=== PATIENT | male | born 1955 | race Caucasian/White ===

== ENCOUNTER 2016-07-04 06:52 | Inpatient (IN) | payer OTHER ==
[2016-07-04] VITALS (9 sets, daily range): BP systolic 158–212; BP diastolic 71–99; PULSE 57–97; RESP 14–20; TEMP 96.4–98.1; O2SAT 92–99
[~2016-07-04] VITALS: Ht 185.4 cm; Wt 80.0 kg
[~2016-07-04 06:52] MED LIST: AMLO10TA2 PO; LOSA100T PO; MEDI220T PO; PROT40TA PO
[2016-07-04 07:38] LABS: BLOOD, URINE MOD (NEG); GLUCOSE,URINE NEG (NEG); KETONE, URINE NEG (NEG); MUCUS URINE FEW /lpf (OCC); NITRITE,URINE NEG (NEG); PH, URINE 5.5 (5.0-8.5); SQUAMOUS EPITHELIAL CELL URINE <1 /hpf (0-5); URINE COLOR YELLOW (YELLW/STRAW)
[2016-07-04 07:51] LABS: COMMENT (UR) CULT NOT INDICATED; CULTURE IF INDICATED CULT NOT INDICATED
[2016-07-04] MEDS ORDERED: SODIUM CHLOR 0.9% 1000 ML INJ 1,000 ML IV SCH (09:57)
[2016-07-04] MEDS ORDERED: ONDANSETRON HCL 4 MG/2 ML VIAL IVP ONE (10:00)
[2016-07-04] MEDS ORDERED: SODIUM CHLORIDE 0.9% FLUSH 5 ML FLUSH IVF PRN (10:00)
[2016-07-04] MEDS ORDERED: KETOROLAC TROMETHAMINE 30 MG/ML (IVP) VIAL IVP ONE (10:00)
[2016-07-04 10:25] LABS: AUTOMATED NEUTROPHIL # 5.6 TH/MM3 (1.8-7.7); BASOPHIL # 0.1 TH/MM3 (0-0.2); BASOPHIL % 0.9 % (0.0-2.0); EOSINOPHIL # 0.3 TH/MM3 (0-0.4); EOSINOPHIL % 3.1 % (0.0-4.0); HEMATOCRIT 40.4 % (39.0-51.0); HEMO FLAGS DIFF FINAL; LYMPH % 20.4 % (9.0-44.0); LYMPHOCYTE # 1.7 TH/MM3 (1.0-4.8); MEAN CELL VOLUME 100.8 FL (80.0-100.0); MEAN CORPUSCULAR HEMOGLOBIN 35.1 PG (27.0-34.0); MEAN CORPUSCULAR HGB CONC 34.9 % (32.0-36.0); MONO % 8.5 % (0.0-8.0); NEUT % 67.1 % (16.0-70.0); PLATELET COUNT 191 TH/MM3 (150-450); RED BLOOD COUNT 4.01 MIL/MM3 (4.50-5.90); WHITE BLOOD COUNT 8.4 TH/MM3 (4.0-11.0)
[2016-07-04 10:40] LABS: ALT (GPT) 59 U/L (12-78); ANION GAP 5 MEQ/L (5-15); AST (GOT) 66 U/L (15-37); BICARBONATE 27.9 MEQ/L (21.0-32.0); BLOOD UREA NITROGEN 16 MG/DL (7-18); CHLORIDE 108 MEQ/L (98-107); GLOMERULAR FILTRATION RATE 63 ML/MIN (>89); POTASSIUM 4.6 MEQ/L (3.5-5.1); SODIUM (NA) 141 MEQ/L (136-145)
[2016-07-04 10:43] LABS: ALKALINE PHOSPHATASE 82 U/L (45-117); TOTAL BILIRUBIN ADULT 0.4 MG/DL (0.2-1.0)
--- NOTE | 2016-07-04 11:19 | PD ---
HPI Chief Complaint: Flank/Kidney Pain Time Seen by Provider: 09:54 Travel History International Travel<30 days: No Contact w/Intl Traveler<30days: No Traveled to known affect area: No History of Present Illness HPI Patient is a 61-year-old male presents emergency Department with a history of right flank pain intermittent for the past 2 days. Patient states he went to work today and the pain became excruciating and told his boss was, in the emergency department. Patient states he has a history of kidney stones and feels like he might have a kidney stone now. Denies any fevers mild nausea without vomiting. No diarrhea no blood in the stool. Patient states she's not seen a urologist in some time, his last kidney stone he had to be admitted for to have ultrasonographic lithotripsy. Patient states currently his pain is 10 out of 10 but is been intermittent in her right flank. Also endorses dysuria. PFSH Past Medical History Hx Anticoagulant Therapy: Yes (ASPIRIN) Blood Disorders: Yes (bleeds easily) Heart Rhythm Problems: No Cancer: No Cardiac Catheterization: Yes Cardiovascular Problems: Yes (HTN) High Cholesterol: No Chest Pain: Yes Congestive Heart Failure: No Cerebrovascular Accident: Yes Diabetes: No Diminished Hearing: No Endocrine: No Gastrointestinal Disorders: Yes Genitourinary: Yes (kidney stones) Hepatitis: Yes (C) Hiatal Hernia: Yes Hypertension: Yes ( 2 cardiac caths) Immune Disorder: No Implanted Vascular Access Dvce: No Kidney Stones: Yes Musculoskeletal: Yes (ruptured right bicep) Neurologic: Yes (TIA x ) Psychiatric: Yes (ALCOHOLISM) Reproductive: No Respiratory: No Integumentary: Yes (PSORIASIS) Thyroid Disease: No Past Surgical History Abdominal Surgery: No AICD: No Ear Surgery: No Eye Surgery: No Genitourinary Surgery: No Gynecologic Surgery: No Joint Replacement: No Oral Surgery: No Pacemaker: No Tonsillectomy: Yes Other Surgery: Yes (tennis elbow, carpal tunnel, rotator cuff, hiatal hernia) Social History Alcohol Use: Yes (vodka daily) Tobacco Use: Yes (2ppd) Substance Use: No Allergies-Medications (Allergen,Severity, Reaction): Coded Allergies: Darvocet-N 100 (Verified Allergy, Severe, Hives, 07/04/16) Reported Meds & Prescriptions Reported Meds & Active Scripts Active Losartan (Losartan Potassium) 100 Mg Tab 100 Mg PO DAILY Review of Systems Except as stated in HPI: all other systems reviewed are Neg Physical Exam Narrative GENERAL: Well-developed well-nourished no apparent distress SKIN: Warm and dry. HEAD: Atraumatic. Normocephalic. EYES: Pupils equal and round. No scleral icterus. No injection or drainage. ENT: No nasal bleeding or discharge. Mucous membranes pink and moist. NECK: Trachea midline. No JVD. CARDIOVASCULAR: Regular rate and rhythm. No murmur appreciated. RESPIRATORY: No accessory muscle use. Clear to auscultation. Breath sounds equal bilaterally. GASTROINTESTINAL: Abdomen soft, non-tender, nondistended. Hepatic and splenic margins not palpable. Minimal CVA tenderness on the right. MUSCULOSKELETAL: No obvious deformities. No clubbing. No cyanosis. No edema. NEUROLOGICAL: Awake and alert. No obvious cranial nerve deficits. Motor grossly within normal limits. Normal speech. PSYCHIATRIC: Appropriate mood and affect; insight and judgment normal. Data Data Last Documented VS Vital Signs Date Time Temp Pulse Resp B/P Pulse Ox O2 Delivery O2 Flow Rate FiO2 07/04/16 11:37 16 07/04/16 10:36 97 07/04/16 10:16 57 212/99 Room Air 07/04/16 06:54 97.9 Orders Urinalysis - C+S If Indicated (07/04/16 07:08) Complete Blood Count With Diff (07/04/16 09:57) Comprehensive Metabolic Panel (07/04/16 09:57) Lipase (07/04/16 09:57) Ct Abd/Pel W/O Iv Contrast (07/04/16 09:57) Iv Access Insert/Monitor (07/04/16 09:57) Ecg Monitoring (07/04/16 09:57) Oximetry (07/04/16 09:57) Ondansetron Inj (Zofran Inj) (07/04/16 10:00) Sodium Chlor 0.9% 1000 Ml Inj (Ns 1000 M (07/04/16 09:57) Sodium Chloride 0.9% Flush (Ns Flush) (07/04/16 10:00) Ketorolac Inj (Toradol Inj) (07/04/16 10:00) Morphine Inj (Morphine Inj) (07/04/16 12:30) Electrocardiogram (07/04/16 ) Troponin I (07/04/16 13:32) Admit Order (Ed Use Only) (07/04/16 ) Consult Urology (07/04/16 ) Labs Laboratory Tests Test 07/04/16 07/04/16 07:13 10:10 Urine Color YELLOW Urine Turbidity CLEAR Urine pH 5.5 Urine Specific [place] 1.019 Urine Protein TRACE mg/dL Urine Glucose (UA) NEG mg/dL Urine Ketones NEG mg/dL Urine Occult Blood MOD Urine Nitrite NEG Urine Bilirubin NEG Urine Urobilinogen LESS THAN 2.0 MG/DL Urine Leukocyte Esterase MOD Urine RBC /hpf Urine WBC 6 /hpf Urine Squamous Epithelial <1 /hpf Cells Urine Mucus FEW /lpf Microscopic Urinalysis Comment CULT NOT INDICATED White Blood Count 8.4 TH/MM3 Red Blood Count 4.01 MIL/MM3 Hemoglobin 14.1 GM/DL Hematocrit 40.4 % Mean Corpuscular Volume 100.8 FL Mean Corpuscular Hemoglobin 35.1 PG Mean Corpuscular Hemoglobin 34.9 % Concent Red Cell Distribution Width 13.0 % Platelet Count 191 TH/MM3 Mean Platelet Volume 8.9 FL Neutrophils (%) (Auto) 67.1 % Lymphocytes (%) (Auto) 20.4 % Monocytes (%) (Auto) 8.5 % Eosinophils (%) (Auto) 3.1 % Basophils (%) (Auto) 0.9 % Neutrophils # (Auto) 5.6 TH/MM3 Lymphocytes # (Auto) 1.7 TH/MM3 Monocytes # (Auto) 0.7 TH/MM3 Eosinophils # (Auto) 0.3 TH/MM3 Basophils # (Auto) 0.1 TH/MM3 CBC Comment DIFF FINAL Differential Comment Sodium Level 141 MEQ/L Potassium Level 4.6 MEQ/L Chloride Level 108 MEQ/L Carbon Dioxide Level 27.9 MEQ/L Anion Gap 5 MEQ/L Blood Urea Nitrogen 16 MG/DL Creatinine 1.18 MG/DL Estimat Glomerular Filtration 63 ML/MIN Rate Random Glucose 77 MG/DL Calcium Level 8.6 MG/DL Total Bilirubin 0.4 MG/DL Aspartate Amino Transf 66 U/L (AST/SGOT) Alanine Aminotransferase 59 U/L (ALT/SGPT) Alkaline Phosphatase 82 U/L Total Protein 8.2 GM/DL Albumin 3.8 GM/DL Lipase 133 U/L [facility] Medical Decision Making Medical Screen Exam Complete: Yes Emergency Medical Condition: Yes Differential Diagnosis Kidney stone, hydronephrosis, acute kidney injury, urinary tract infection. Cholecystitis unlikely, appendicitis unlikely. Narrative Course Last 24 hours Impressions Abdomen/Pelvis CT 07/04/16 0957 Signed Impressions: Service Date/Time: Monday, July 04, 2016 11:15 - CONCLUSION: 1. Obstructing calcified elongated 1 cm stone in the distal third of the right ureter with moderate perinephric stranding. 2. Renal stones remain in both kidneys. Gregory Chavez MD FACR Abdomen X-Ray 07/04/16 0000 Signed Impressions: Service Date/Time: Monday, July 04, 2016 14:19 - CONCLUSION: 1. Known bilateral renal calculi and right distal ureteral calculus are difficult to identify on the limited plain film. 2. No evidence of bowel obstruction, ileus or perforation. Evin Matt MD Patient Cr wnl, no uti. Patient appears comfortable at first then colicky pain starts again requring multiple doses of IV narcotics (morphine and dilaudid IV) . Patient discussed with Dr. Holloway who will see in consultation. Admitted to Dr. Curiel. Diagnosis Primary Impression: Kidney stone Additional Impression: Hydronephrosis Admitting Information Admitting Physician Requests: Admit Condition: Stable Evin Pearson MD Jul 04, 2016 11:19
--- NOTE | 2016-07-04 11:47 | RADRPT ---
EXAM DATE/TIME: 07/04/2016 11:15 [facility] COMPARISON: CT ABDOMEN & PELVIS W/O CONTRAST, May 05, 2016, 19:32. INDICATIONS : Right flank pain and hematuria x 3 days. ORAL CONTRAST: No oral contrast ingested. RADIATION DOSE: 10.10 CTDIvol (mGy) MEDICAL HISTORY: Cardiovascular disease. Cerebrovascular disease. Renal calculi. Hypertension. Hepatitis C. SURGICAL HISTORY: None. ENCOUNTER: Initial ACUITY: 3 days PAIN SCALE: 10/10 LOCATION: Right flank TECHNIQUE: Volumetric scanning of the abdomen and pelvis was performed. Using automated exposure control and ad justment of the mA and/or kV according to patient size, radiation dose was kept as low as reasonably achievable to obtain optimal diagnostic quality images. FINDINGS: Lung bases are clear. There is a single low density lesion present in the dome of the liver measurin g 2 cm, stable in the interval. Spleen is unremarkable. Pancreas and adrenals appear normal. There is moderate perinephric stranding about the right kidney. There is an 8 mm non-obstructing sto ne in the mid portion of the right kidney. There is a dilated right ureter extending down to the pelvis where there is an elongated 8 mm stone i n the distal third of the right ureter above the ureteropelvic junction. Scattered non-obstructing c alculi are seen in the left kidney in the order of 5-7 mm. There is no ascites or adenopathy appreciated. Extensive prostatic calcifications are noted. CONCLUSION: 1. Obstructing calcified elongated 1 cm stone in the distal third of the right ureter with moderate perinephric stranding. 2. Renal stones remain in both kidneys. Gregory Chavez MD FACR on July 04, 2016 at 11:34 Board Certified Radiologist. This report was verified electronically.
[2016-07-04] MEDS ORDERED: MORPHINE SULFATE 8 MG/ML INJ IV PUSH ONE (12:30)
[2016-07-04] MEDS ORDERED: NALOXONE HCL 0.4 MG/ML AMP IV PRN ×2 (14:00)
[2016-07-04] MEDS ORDERED: MORPHINE SULFATE 4 MG/ML INJ IV PRN (14:00)
[2016-07-04] MEDS ORDERED: ACETAMINOPHEN/HYDROcodone 325 MG/5 MG TAB PO PRN (14:00)
[2016-07-04] MEDS ORDERED: hydrALAZINE HCL 20 MG/ML VIAL IV PUSH ONE (14:00)
[2016-07-04] MEDS ORDERED: SENNOSIDES 8.6 MG TAB PO PRN (14:15)
[2016-07-04] MEDS ORDERED: SODIUM CHLORIDE 0.9% FLUSH 5 ML FLUSH FLUSH PRN (14:15)
[2016-07-04] MEDS ORDERED: TEMAZEPAM 15 MG CAP PO PRN (14:15)
[2016-07-04] MEDS ORDERED: PROCHLORPERAZINE 25 MG SUPP PR PRN (14:15)
[2016-07-04] MEDS ORDERED: BISACODYL 10 MG SUPP PR PRN (14:15)
[2016-07-04] MEDS ORDERED: ONDANSETRON HCL 4 MG/2 ML VIAL IVP PRN (14:15)
[2016-07-04] MEDS ORDERED: MAGNESIUM HYDROXIDE SUSP 30 ML CUP PO PRN (14:15)
[2016-07-04] MEDS ORDERED: HYDROmorphone HCL PF 1 MG/ML VIAL IV PUSH ONE ×2 (14:45→21:30)
[2016-07-04] MEDS: SODIUM CHLOR 0.9% 1000 ML INJ 1,000 ML IV SCH ×2 (15:28→21:35)
--- NOTE | 2016-07-04 16:06 | HHI.HP ---
HPI Service [facility] Primary Care Physician Unknown Admission Diagnosis Obstructing kidney stone. Diagnoses: Chief Complaint: back pain , bloody urine Travel History International Travel<30 Days: No Contact w/Intl Traveler <30 Da: No Traveled to Known Affected Are: No History of Present Illness 60-year-old male with PMH of HTN, ? hepatitis C, ventral hernia s/p repair with mesh 30years ago, TIA 2, psoriasis, renal stones, tobacco user, presents with right flank pain/ abdominal pain radiating to the groin x 2 days and bloody urine for the past week. Patient states he went to work today and the pain became excruciating and told his boss he will go to the emergency department. Patient states he has a history of kidney stones and feels like he might have a kidney stone now. Denies any fevers. he has mild nausea without vomiting. No diarrhea, no blood in the stool. Patient states she's not seen a urologist in some time, his last kidney stone he had to be admitted for to have ultrasonographic lithotripsy. Patient states currently his pain is 10 out of 10 but is been intermittent in her right flank. Also endorses dysuria for the past week. He also has burning with urination. No other associated symptoms. Review of Systems Other 12 system ROS reviewed and negative except as described in HPI Past Family Social History Past Medical History HTN TIA 2, in 2011 and 2014 Hepatitis C Ventral hernia Renal stones Internal hemorrhoids Psoriasis Recent bicep tendon rupture Past Surgical History Ventral hernia repair with mesh at age 20 Tonsillectomy Bilateral elbow surgery for "tennis elbow" Left carpal tunnel surgery Lithotripsy Heart catheterizations, in 2011 and 12/04/2014 showed 20-25% LAD stenosis, did not require angioplasty or stenting, otherwise unremarkable Reported Medications Losartan Potassium 100 Mg Tab 100 Mg PO DAILY Clobetasol Propionate 0.05 % Oin 1 Applic TOP BID Tylenol pm at night for sleep Allergies: Coded Allergies: Darvocet-N 100 (Verified Allergy, Severe, Hives, 07/04/16) Family History Motherheart disease, age 84 Fatherheart disease in his 70s Brothersuicide Younger sister with stage IV cervical cancer Other sister with anxiety Maternal aunt with lung cancer Social History Smokes tobacco 1.5 PPD since age 18, recently signed up for tobacco-free [place] and is trying to quit Drink alcohol, 1/2 pint of vodka on the weekends Denies any other illicit drug use Works at [employer], mops and cleans, stays active, ruptured his bicep tendon and is on Workman's Comp Lives at home Physical Exam Vital Signs Vital Signs Date Time Temp Pulse Resp B/P Pulse Ox O2 Delivery O2 Flow Rate FiO2 07/04/16 16:00 17 07/04/16 15:58 98.1 78 17 180/98 99 Room Air 07/04/16 15:31 17 07/04/16 14:24 95 21 07/04/16 11:37 16 07/04/16 10:36 20 97 07/04/16 10:16 57 14 212/99 97 Room Air 07/04/16 06:54 97.9 71 18 205/94 99 Physical Exam GENERAL: This is a well-nourished, well-developed patient, in no apparent distress. SKIN: No rashes, ecchymoses or lesions. Cool and dry. HEAD: Atraumatic. Normocephalic. No temporal or scalp tenderness. EYES: Pupils equal round and reactive. Extraocular motions intact. No scleral icterus. No injection or drainage. ENT: Nose without bleeding, purulent drainage or septal hematoma. Throat without erythema, tonsillar hypertrophy or exudate. Uvula midline. Airway patent. NECK: Trachea midline. No JVD or lymphadenopathy. Supple, nontender, no meningeal signs. CARDIOVASCULAR: Regular rate and rhythm without murmurs, gallops, or rubs. RESPIRATORY: Clear to auscultation. Breath sounds equal bilaterally. No wheezes , rales, or rhonchi. GASTROINTESTINAL: Abdomen soft, non-tender, nondistended. No hepato-splenomegaly , or palpable masses. No guarding. MUSCULOSKELETAL: Extremities without clubbing, cyanosis, or edema. No joint tenderness, effusion, or edema noted. No calf tenderness. Negative Homans sign bilaterally. NEUROLOGICAL: Awake and alert. Cranial nerves II through XII intact. Motor and sensory grossly within normal limits. Five out of 5 muscle strength in all muscle groups. Normal speech. Laboratory Laboratory Tests Test 07/04/16 07/04/16 07/04/16 07:13 10:10 14:37 Urine Color YELLOW Urine Turbidity CLEAR Urine pH 5.5 Urine Specific [place] 1.019 Urine Protein TRACE Urine Glucose (UA) NEG Urine Ketones NEG Urine Occult Blood MOD Urine Nitrite NEG Urine Bilirubin NEG Urine Urobilinogen LESS THAN 2.0 Urine Leukocyte Esterase MOD Urine RBC Urine WBC 6 Urine Squamous Epithelial <1 Cells Urine Mucus FEW Microscopic Urinalysis Comment CULT NOT INDICATED White Blood Count 8.4 Red Blood Count 4.01 Hemoglobin 14.1 Hematocrit 40.4 Mean Corpuscular Volume 100.8 Mean Corpuscular Hemoglobin 35.1 Mean Corpuscular Hemoglobin 34.9 Concent Red Cell Distribution Width 13.0 Platelet Count 191 Mean Platelet Volume 8.9 Neutrophils (%) (Auto) 67.1 Lymphocytes (%) (Auto) 20.4 Monocytes (%) (Auto) 8.5 Eosinophils (%) (Auto) 3.1 Basophils (%) (Auto) 0.9 Neutrophils # (Auto) 5.6 Lymphocytes # (Auto) 1.7 Monocytes # (Auto) 0.7 Eosinophils # (Auto) 0.3 Basophils # (Auto) 0.1 CBC Comment DIFF FINAL Differential Comment Sodium Level 141 Potassium Level 4.6 Chloride Level 108 Carbon Dioxide Level 27.9 Anion Gap 5 Blood Urea Nitrogen 16 Creatinine 1.18 Estimat Glomerular Filtration 63 Rate Random Glucose 77 Calcium Level 8.6 Total Bilirubin 0.4 Aspartate Amino Transf 66 (AST/SGOT) Alanine Aminotransferase 59 (ALT/SGPT) Alkaline Phosphatase 82 Total Protein 8.2 Albumin 3.8 Lipase 133 Troponin I LESS THAN 0.02 Result Diagram: 07/04/16 1010 07/04/16 1010 Imaging Last Impressions Abdomen/Pelvis CT 07/04/16 0957 Signed Impressions: Service Date/Time: Monday, July 04, 2016 11:15 - CONCLUSION: 1. Obstructing calcified elongated 1 cm stone in the distal third of the right ureter with moderate perinephric stranding. 2. Renal stones remain in both kidneys. Gregory Chavez MD FACR Assessment and Plan Assessment and Plan 61-year-old male with PMH of HTN, hepatitis C, ventral hernia s/p repair with mesh 30years ago, TIA 2, psoriasis, renal stones, tobacco user with right flank pain and hematuria Right flank pain and hematuria 2/2 nephrolithiasis Mild RANDY decreased GFR and elevated Cr and BUN on admission likely 2/2 obstructing calcified 1 cm right ureter stone/ nephrolithiasis CT reviewed findings discussed with ED physician 1. Obstructing calcified elongated 1 cm stone in the distal third of the right ureter with moderate perinephric stranding. 2. Renal stones remain in both kidneys IVF, pain meds per pain scale PO and IV NPO after midnight plan for sx by Dr Holloway urology appreciate recommendations HTN: Chronic, stable. Continue patient's Cozaar. Hepatitis C: Chronic, stable. Continue outpatient follow up. Tobacco Abuse: Counseled on cessation. Nicotine patch if need, refusing at this time. Alcohol Abuse: Counseled on cessation. Not a daily drinker but does binge on the weekends with 1/2 pint of Vodka. Denies any problem with withdrawal. Monitor. Chronic Neck Pain/Shoulder Pain/Bicep Tear: pain control as needed. All other medical conditions stable, continue home medications. DVT Prophylaxis: teds/SCDs GI Prophylaxis: Protonix Code Status full code Discussed Condition With patient, nurse, ED physician, Dr Holloway urology Physician Certification 2 Midnight Certification Type: Admission for Inpatient Services Order for Inpatient Services The services are ordered in accordance with Medicare regulations or non- Medicare payer requirements, as applicable. In the case of services not specified as inpatient-only, they are appropriately provided as inpatient services in accordance with the 2-midnight benchmark. Estimated LOS (days): 3 days is the estimated time the patient will need to remain in the hospital, assuming treatment plan goals are met and no additional complications. Post-Hospital Plan: Not yet determined Abigail Curiel MD Jul 04, 2016 16:06
[2016-07-04] MEDS: TAMSULOSIN HCL 0.4 MG CAP PO SCH (16:27)
[2016-07-04] MEDS ORDERED: PANTOPRAZOLE SOD 20 MG DELAYED RELEASE TAB PO ONE (16:30)
--- NOTE | 2016-07-04 17:01 | RADRPT ---
EXAM DATE/TIME: 07/04/2016 14:19 [facility] COMPARISON: CT ABDOMEN & PELVIS W/O CONTRAST, July 04, 2016, 11:15. ABDOMEN KUB ONLY, February 08, 2016, 6: 20. INDICATIONS : Renal stones, abdominal pain. MEDICAL HISTORY : Hepatitis C. Hypertension. Hernia, hiatal. Renal stones. CVA. SURGICAL HISTORY : Cardiac cath. ENCOUNTER: Initial ACUITY: 4 - 6 days PAIN SCORE: 5/10 LOCATION: Right abdomen. FINDINGS: There is no evidence of bowel obstruction or ileus. The known bilateral renal calculi and right dist al ureteral calculus are very difficult to identify on the limited plain film. No free intraperitone al air is noted. CONCLUSION: 1. Known bilateral renal calculi and right distal ureteral calculus are difficult to identify on the limited plain film. 2. No evidence of bowel obstruction, ileus or perforation. Evin Matt MD on July 04, 2016 at 16:53 Board Certified Radiologist. This report was verified electronically.
[2016-07-04] MEDS: ACETAMINOPHEN/HYDROcodone 325 MG/10 MG TAB PO PRN ×2 (17:36→23:10)
[2016-07-04] MEDS ORDERED: cloNIDine HCL 0.1 MG TAB PO PRN (17:45)
--- NOTE | 2016-07-04 17:51 | EKG ---
Date Performed: 07/04/2016 Time Performed: 14:26:06 PTAGE: 61 years EKG: Sinus rhythm WITH Premature atrial contractions NONSPECIFIC T-WAVE ABNORMALITY BORDERLINE ECG NO SIGNIFICANT GARCIA GE FROM PRIOR ELECTROCARDIOGRAM. PREVIOUS TRACING : 02/08/2016 06.33 DOCTOR: Galileo Mckeon Interpretating Date/Time 07/04/2016 17:50:42
[2016-07-04] MEDS: TRIAMCINOLONE ACETONIDE 0.1% CREAM 15 GM TOPICAL SCH ×2 (18:00→23:10)
[2016-07-04] MEDS: MORPHINE SULFATE 4 MG/ML INJ IV PRN (18:33)
[2016-07-04] MEDS: SODIUM CHLORIDE 0.9% FLUSH 5 ML FLUSH FLUSH SCH (21:00)
[2016-07-05] VITALS (8 sets, daily range): BP systolic 129–162; BP diastolic 74–91; PULSE 66–88; RESP 16–20; TEMP 96.7–97.6; O2SAT 95–98
[2016-07-05] MEDS: MORPHINE SULFATE 4 MG/ML INJ IV PRN ×3 (01:30→07:52)
[2016-07-05] MEDS: TRIAMCINOLONE ACETONIDE 0.1% CREAM 15 GM TOPICAL SCH ×4 (04:49→23:38)
[2016-07-05] MEDS: SODIUM CHLOR 0.9% 1000 ML INJ 1,000 ML IV SCH ×3 (04:49→21:41)
[2016-07-05 07:12] LABS: AUTOMATED NEUTROPHIL # 3.7 TH/MM3 (1.8-7.7); BASOPHIL % 0.4 % (0.0-2.0); EOSINOPHIL # 0.4 TH/MM3 (0-0.4); EOSINOPHIL % 5.7 % (0.0-4.0); HEMATOCRIT 35.3 % (39.0-51.0); HEMO FLAGS DIFF FINAL; LYMPH % 23.7 % (9.0-44.0); LYMPHOCYTE # 1.5 TH/MM3 (1.0-4.8); MEAN CELL VOLUME 102.5 FL (80.0-100.0); MEAN CORPUSCULAR HEMOGLOBIN 34.6 PG (27.0-34.0); MEAN CORPUSCULAR HGB CONC 33.7 % (32.0-36.0); NEUT % 59.2 % (16.0-70.0); PLATELET COUNT 157 TH/MM3 (150-450); RED BLOOD COUNT 3.44 MIL/MM3 (4.50-5.90); RED CELL DISTRIBUTION WIDTH 13.1 % (11.6-17.2); WHITE BLOOD COUNT 6.3 TH/MM3 (4.0-11.0)
[2016-07-05 07:42] LABS: BICARBONATE 25.8 MEQ/L (21.0-32.0); POTASSIUM 3.8 MEQ/L (3.5-5.1)
[2016-07-05] MEDS: PANTOPRAZOLE SOD 20 MG DELAYED RELEASE TAB PO SCH (07:51)
[2016-07-05] MEDS: SODIUM CHLORIDE 0.9% FLUSH 5 ML FLUSH FLUSH SCH ×2 (07:51→21:00)
[2016-07-05] MEDS: TAMSULOSIN HCL 0.4 MG CAP PO SCH (07:51)
--- NOTE | 2016-07-05 08:54 | HHI.PR ---
Subjective Remarks Patient seen in follow-up for obstructing kidney stone, acute renal insufficiency. He reports persistent, uncontrolled right flank and lower back pain. Urinating okay. No nausea or vomiting. Objective Vitals Vital Signs Date Time Temp Pulse Resp B/P Pulse Ox O2 Delivery O2 Flow Rate FiO2 07/05/16 08:00 96.7 72 18 162/77 98 07/05/16 04:00 97.2 68 16 129/74 96 07/05/16 00:00 97.4 79 16 146/74 97 07/04/16 20:00 96.9 75 18 166/74 97 07/04/16 18:11 96.4 97 18 163/71 92 07/04/16 17:42 78 17 158/73 99 07/04/16 16:33 78 17 170/82 98 Room Air 07/04/16 16:00 17 07/04/16 15:58 98.1 78 17 180/98 99 Room Air 07/04/16 15:31 17 07/04/16 14:24 95 21 07/04/16 11:37 16 07/04/16 10:36 20 97 07/04/16 10:16 57 14 212/99 97 Room Air I/O 07/04/16 07/04/16 07/04/16 07/05/16 07/05/16 07/05/16 07:00 15:00 23:00 07:00 15:00 23:00 Intake Total 360 ml 0 ml Balance 360 ml 0 ml Intake Oral 360 ml 0 ml # Voids 1 2 # Bowel Movements 0 0 Result Diagram: 07/05/16 0642 07/05/16 0642 Imaging Last Impressions Abdomen/Pelvis CT 07/04/16 0957 Signed Impressions: Service Date/Time: Monday, July 04, 2016 11:15 - CONCLUSION: 1. Obstructing calcified elongated 1 cm stone in the distal third of the right ureter with moderate perinephric stranding. 2. Renal stones remain in both kidneys. Gregory Chavez MD FACR Abdomen X-Ray 07/04/16 0000 Signed Impressions: Service Date/Time: Monday, July 04, 2016 14:19 - CONCLUSION: 1. Known bilateral renal calculi and right distal ureteral calculus are difficult to identify on the limited plain film. 2. No evidence of bowel obstruction, ileus or perforation. Evin Matt MD Objective Remarks GENERAL: This is a well-nourished, well-developed patient, in no apparent distress. SKIN: Multiple psoriatic plaques involving the upper and lower extremities. CARDIOVASCULAR: Normal rate and regular rhythm without murmurs, gallops, or rubs. RESPIRATORY: Good respiratory efforts. Breath sounds equal and clear to auscultation bilaterally. GASTROINTESTINAL: Abdomen soft, non-tender, non-distended. Normal active bowel sounds : Reports CVA tenderness on the right. MUSCULOSKELETAL: Extremities without cyanosis, or edema. NEURO: Alert & Oriented x4 to person, place, time, situation. Moves all ext x4 PSYCH: Appropriate mood and affect. A/P Assessment and Plan 61-year-old male with: Right sided nephrolithiasis and hematuria: - Continue supportive care with pain control and IV fluid. - Urology consulted for intervention. Dr. Holloway. Keep NPO - Pain is uncontrolled. Change [place] to Percocet, Dilaudid IV for breakthrough. Hematuria resolved. Acute renal insufficiency: Likely secondary to above and dehydration. - Continue IV fluid. Recheck BMP in a.m. Anemia secondary to blood loss from above: Hematuria resolved. Continue to monitor H&H. HTN: Chronic, stable. Continue patient's Cozaar. Hepatitis C: Chronic, stable. Advised outpatient follow up. Tobacco Abuse: Patient previously counseled on cessation. DVT Prophylaxis: teds/SCDs GI Prophylaxis: Protonix Nj Saenz MD Jul 05, 2016 08:54
[2016-07-05] MEDS ORDERED: INFLUENZA VIRUS VACCINE (QUADRIVALENT) 0.5 ML SYR IM ONE (09:00)
[2016-07-05] MEDS: oxyCODONE/ACETAMINOPHEN 10 MG/325 MG TAB PO PRN ×3 (10:05→23:37)
[2016-07-05] MEDS: HYDROmorphone HCL PF 1 MG/ML VIAL IV PUSH PRN ×2 (11:38→15:20)
[2016-07-05] MEDS ORDERED: ONDANSETRON HCL 4 MG/2 ML VIAL IV PUSH ONE (12:00)
[2016-07-05] MEDS ORDERED: LACTATED RINGER'S 1000 ML INJ 1,000 ML IV ONE (12:00)
[2016-07-05] MEDS ORDERED: PROPOFOL 200 MG/20 ML AMP IV ONE (12:00)
[2016-07-05] MEDS ORDERED: NEOSTIGMINE 3 MG/3 ML SYR IV ONE (12:00)
--- NOTE | 2016-07-05 16:55 | MB ---
cc: JOE AGUAYO MD DATE OF CONSULTATION 07/05/16 REASON FOR CONSULTATION 1. Right flank pain 2. Distal right 8 mm ureteral stone with mild hydronephrosis. 3. Bilateral nonobstructing kidney stones HISTORY OF PRESENT ILLNESS The patient is a 60-year-old male with a history of kidney stones who presented with a four day history of right flank pain radiating into his groin for last four days but worsening in intensity as well as gross hematuria for the past week. The patient went to work yesterday and the pain became excruciating described as sharp and stabbing 03/05 and he told his boss he had to go to the emergency department. In the emergency room, he had a CT of the abdomen and pelvis without contrast done which showed bilateral nonobstructing stones as well as a 1 cm x 8 mm stone in his right distal ureter with mild hydroureter nephrosis. The pain reminded him of his kidney stone pain in the past. The patient was admitted for further evaluation. He denies any fevers, although has had mild nausea without vomiting. No diarrhea or chills or dysuria. He has been seen by Dr. Zaidi in the past who did lithotripsy on his stones in his left kidney several months ago. He denies any family history of prostate cancer. He has received both morphine and Toradol for pain since he has been admitted, but neither has really helped with his pain. PAST MEDICAL HISTORY 1. Hypertension, 2. TIA x2 3. Hepatitis C 4. Ventral hernia 5. Renal stones, 6. Psoriasis PAST SURGICAL HISTORY 1. Lithotripsy 2. Heart catheterization 2011 3. Tonsillectomy 4. Ventral hernia repair with mesh 5. Left carpal tunnel surgery MEDICATIONS Home medications include 1. Losartan 100 mg p.o. daily. 2. Tylenol PM at night p.r.n. for insomnia. ALLERGIES DARVOCET FAMILY HISTORY Negative for urolithiasis, negative for genitourinary malignancies. SOCIAL HISTORY Smoked 1 1/2 packs per day since 16. The patient drinks half pint of vodka on the weekends. Denies any illicit drug use. Currently at [employer]. REVIEW OF SYSTEMS A 12-point review of systems was performed and otherwise negative except for History of Present Illness. PHYSICAL EXAMINATION VITAL SIGNS: Temperature is 98.1, pulse 78, respiratory rate 17, BP 180/98, satting 99% on room air. GENERAL: He is alert and oriented x3. No apparent distress. Pleasant and cooperative gentleman who appears to be mildly uncomfortable. SKIN: No rashes, ecchymosis or lesions. Cook and dry. HEAD: Head is normocephalic, atraumatic. NECK: Trachea is midline. Neck is supple. EYES: There is no scleral icterus. Pupils equal, round, reactive to light. NOSE: Without bleeding, purulent drainage. Uvula is midline. CARDIOVASCULAR: Regular rate and rhythm without murmurs, gallops or rubs. RESPIRATORY: Clear to auscultation bilaterally. No wheezes, rales or rhonchi GASTROINTESTINAL: Abdomen soft, nontender, nondistended. Positive bowel sounds. GENITOURINARY:: There is no CVA test bilaterally. His penis is circumcized. Testes descended bilaterally. Normal size and consistency without mass. MUSCULOSKELETAL: Extremities without clubbing, cyanosis or edema, nontender, full range of motion in all extremities. PSYCHIATRIC: Normal affect. LABORATORY DATA White count 6.3, hemoglobin 11.9, hematocrit 35.3, platelet count 157. Sodium 138, potassium ___, chloride 106, bicarb 25.8, BUN 16, creatinine 1.32 up from 1.1. His urine was just some moderate blood and moderate leukocyte esterase. IMAGING STUDIES CT abdomen and pelvis without contrast images, reviewed radiologist report. Bilateral nonobstructing stones as well as an 8 millimeter distal right ureteral stone with mild hydronephrosis. ASSESSMENT The patient is a 61-year-old male with history of kidney stones admitted with right flank pain. He was found to have obstructing 8-mm right distal ureteral calculus as well as bilateral nonobstructing stones. PLAN We will keep the patient n.p.o. We will schedule him for cystoscopy right retrograde pyelogram, right ureteral stent insertion later today. I discussed the risks, benefits, alternatives with the patient including inability to pass a stent. All questions were answered. He elected to proceed. Informed consent was obtained. INDICATION Joe Aguayo MD EMTatiana/ /2:11 PM /4:34 PM M[place]
[2016-07-05] MEDS ORDERED: ceFAZolin 2 GM PREMIX 50 ML ONE (17:51)
[2016-07-05] MEDS ORDERED: FAMOTIDINE 20 MG/2 ML VIAL ONE (18:09)
[2016-07-05] MEDS ORDERED: ceFAZolin INJ 1,000 MG VIAL IV ONE (18:55)
--- NOTE | 2016-07-05 19:16 | PD.OP ---
Operative Report Date of Surgery: Jul 05, 2016 Preoperative Diagnosis: (1) Kidney stone (2) Hydronephrosis Postoperative Diagnosis: Procedure: cystoscopy, right ureteral stent insertion Surgeon: Joe Holloway Tele Marketing Executive(s): n/a Operation and Findings: see dictated note. Ok to d/c home. F/U with Dr. Zaidi as outpatient. Joe Holloway MD Jul 05, 2016 19:15
[2016-07-05] MEDS ORDERED: MIDAZOLAM HCL 2 MG/2 ML VIAL ONE (19:30)
[2016-07-05] MEDS ORDERED: *morphine SULFATE 8 MG/ML PERIprocedure ONLY ONE ×2 (19:38→19:53)
[2016-07-05] MEDS ORDERED: DO NOT ADM ANY ANTICOAGULANT DRUGS XX PRN (20:00)
[2016-07-06] VITALS: BP 156/91; PULSE 79; RESP 17; TEMP 96.7; O2SAT 95
[2016-07-06] MEDS: HYDROmorphone HCL PF 1 MG/ML VIAL IV PUSH PRN ×2 (00:35→05:36)
[2016-07-06 04:00] VITALS: BP 132/81; PULSE 64; RESP 16; TEMP 96.9; O2SAT 94
[2016-07-06] MEDS: oxyCODONE/ACETAMINOPHEN 10 MG/325 MG TAB PO PRN ×2 (04:14→08:14)
[2016-07-06] MEDS: SODIUM CHLOR 0.9% 1000 ML INJ 1,000 ML IV SCH (04:15)
[2016-07-06] MEDS: TRIAMCINOLONE ACETONIDE 0.1% CREAM 15 GM TOPICAL SCH (05:37)
[2016-07-06 06:58] LABS: HEMATOCRIT 36.7 % (39.0-51.0); MEAN CELL VOLUME 102.6 FL (80.0-100.0); MEAN CORPUSCULAR HEMOGLOBIN 35.4 PG (27.0-34.0); MEAN CORPUSCULAR HGB CONC 34.5 % (32.0-36.0); PLATELET COUNT 177 TH/MM3 (150-450); RED BLOOD COUNT 3.58 MIL/MM3 (4.50-5.90); RED CELL DISTRIBUTION WIDTH 13.1 % (11.6-17.2); REVIEW FLAG FINAL; WHITE BLOOD COUNT 6.8 TH/MM3 (4.0-11.0)
[2016-07-06 07:18] LABS: BICARBONATE 21.7 MEQ/L (21.0-32.0); POTASSIUM 4.5 MEQ/L (3.5-5.1)
[2016-07-06 07:59] VITALS: BP 180/97; PULSE 64; RESP 20; TEMP 96.6; O2SAT 95
[2016-07-06] MEDS: PANTOPRAZOLE SOD 20 MG DELAYED RELEASE TAB PO SCH (08:14)
[2016-07-06] MEDS: TAMSULOSIN HCL 0.4 MG CAP PO SCH (08:14)
[2016-07-06] MEDS: SODIUM CHLORIDE 0.9% FLUSH 5 ML FLUSH FLUSH SCH (08:32)
[2016-07-06] MEDS ORDERED: OXYC1TAB36 PO (09:13)
[2016-07-06] MEDS ORDERED: CLOB0.0571 TOPICAL (09:13)
[2016-07-06] MEDS ORDERED: TAMS5CAP PO (09:13)
--- NOTE | 2016-07-06 09:21 | HHI.DS ---
Discharge Summary Admission Date Jul 04, 2016 at 13:55 Discharge Date: Jul 06, 2016 Admitting Diagnosis Obstructing kidney stone. (1) Renal stones ICD Code: N20.0 (2) Essential hypertension ICD Code: I10 (3) Hematuria ICD Code: R31.9 (4) Anemia ICD Code: D64.9 Procedures Ureteral stent placement Brief History - From Admission 60-year-old male with PMH of HTN, ? hepatitis C, ventral hernia s/p repair with mesh 30years ago, TIA 2, psoriasis, renal stones, tobacco user, presents with right flank pain/ abdominal pain radiating to the groin x 2 days and bloody urine for the past week. Patient states he went to work today and the pain became excruciating and told his boss he will go to the emergency department. Patient states he has a history of kidney stones and feels like he might have a kidney stone now. Denies any fevers. he has mild nausea without vomiting. No diarrhea, no blood in the stool. Patient states she's not seen a urologist in some time, his last kidney stone he had to be admitted for to have ultrasonographic lithotripsy. Patient states currently his pain is 10 out of 10 but is been intermittent in her right flank. Also endorses dysuria for the past week. He also has burning with urination. No other associated symptoms. CBC/BMP: 07/06/16 0615 07/06/16 0615 Significant Findings Laboratory Tests Test 07/04/16 07/04/16 07/04/16 07/05/16 07:13 10:10 14:37 06:42 Urine Occult Blood MOD (NEG) Urine Leukocyte Esterase MOD (NEG) Urine WBC 6 /hpf (0-5) Urine Mucus FEW /lpf (OCC) Red Blood Count 4.01 MIL/MM3 3.44 MIL/MM3 (4.50-5.90) (4.50-5.90) Mean Corpuscular Volume 100.8 FL 102.5 FL (80.0-100.0) (80.0-100.0) Mean Corpuscular Hemoglobin 35.1 PG 34.6 PG (27.0-34.0) (27.0-34.0) Monocytes (%) (Auto) 8.5 % (0.0-8.0) 11.0 % (0.0-8.0) Chloride Level 108 MEQ/L (98-107) Estimat Glomerular Filtration 63 ML/MIN (>89) 56 ML/MIN (>89) Rate Aspartate Amino Transf 66 U/L (15-37) (AST/SGOT) Troponin I LESS THAN 0.02 NG/ML (0.02-0.05) Hemoglobin 11.9 GM/DL (13.0-17.0) Hematocrit 35.3 % (39.0-51.0) Eosinophils (%) (Auto) 5.7 % (0.0-4.0) Creatinine 1.32 MG/DL (0.60-1.30) Calcium Level 8.0 MG/DL (8.5-10.1) Test 07/06/16 06:15 Red Blood Count 3.58 MIL/MM3 (4.50-5.90) Hemoglobin 12.7 GM/DL (13.0-17.0) Hematocrit 36.7 % (39.0-51.0) Mean Corpuscular Volume 102.6 FL (80.0-100.0) Mean Corpuscular Hemoglobin 35.4 PG (27.0-34.0) Estimat Glomerular Filtration 62 ML/MIN (>89) Rate Random Glucose 131 MG/DL (74-106) Calcium Level 8.3 MG/DL (8.5-10.1) Imaging Last Impressions Abdomen/Pelvis CT 07/04/16 0957 Signed Impressions: Service Date/Time: Monday, July 04, 2016 11:15 - CONCLUSION: 1. Obstructing calcified elongated 1 cm stone in the distal third of the right ureter with moderate perinephric stranding. 2. Renal stones remain in both kidneys. Gregory Chavez MD FACR Abdomen X-Ray 07/04/16 0000 Signed Impressions: Service Date/Time: Monday, July 04, 2016 14:19 - CONCLUSION: 1. Known bilateral renal calculi and right distal ureteral calculus are difficult to identify on the limited plain film. 2. No evidence of bowel obstruction, ileus or perforation. Evin Matt MD PE at Discharge GENERAL: This is a well-nourished, well-developed patient, in no apparent distress. SKIN: Multiple psoriatic plaques involving the upper and lower extremities. CARDIOVASCULAR: Normal rate and regular rhythm without murmurs, gallops, or rubs. RESPIRATORY: Good respiratory efforts. Breath sounds equal and clear to auscultation bilaterally. GASTROINTESTINAL: Abdomen soft, non-tender, non-distended. Normal active bowel sounds : Reports CVA tenderness on the right. MUSCULOSKELETAL: Extremities without cyanosis, or edema. NEURO: Alert & Oriented x4 to person, place, time, situation. Moves all ext x4 PSYCH: Appropriate mood and affect. Pt update on day of discharge Patient reports that he is feeling better. Urine is clearing up. Pain is better controlled. Hospital Course 61-year-old male admitted and treated for the following: Right sided nephrolithiasis and hematuria: -Patient treated with pain control and IV fluid. - Urology consulted on the patient, he underwent ureteral stent placement. He is to follow up outpatient with urology. -Urine clearing up. He is advised to continue to drink plenty of fluid. Discharge on Percocet for pain control. - Flomax Acute renal insufficiency: Likely secondary to above and dehydration. Much improved with IV fluid Anemia secondary to blood loss from above: Hematuria resolved. H&H remained stable HTN: Chronic, stable. Continue patient's Cozaar. Hepatitis C: Chronic, stable. Advised outpatient follow up. Tobacco Abuse: Patient previously counseled on cessation. Pt Condition on Discharge: Good Discharge Disposition: Discharge Home Discharge Time: <= 30 minutes Discharge Instructions DIET: Follow Instructions for: As Tolerated, No Restrictions Activities you can perform: Regular-No Restrictions Follow up Referrals: Urology - 1 Week with Oscar Zaidi DO New Medications: Clobetasol Emollient Topical (Clobetasol Emollient Topical) 0.05% Cream 1 APPLIC TOPICAL BID #30 Ref 0 GM Oxycodone-Acetaminophen (Oxycodone-Acetaminophen) 10-325 mg Tab 1 TAB PO Q4H PRN PAIN GREATER THAN 5 #20 TAB Tamsulosin (Flomax) 0.4 Mg Cap 0.4 MG PO DAILY #14 CAP Continued Medications: Losartan (Losartan) 100 Mg Tab 100 MG PO DAILY Blood Pressure Management #30 Ref 3 TAB Nj Saenz MD Jul 06, 2016 09:21
[2016-07-06] MEDS ORDERED: PNEUMOCOCCAL POLYVALENT INJ 25 MCG/0.5 ML SYR IM ONE (10:00)
[2016-07-06 10:30] VITALS: BP 158/88
--- NOTE | 2016-07-06 20:52 | EKG ---
Date Performed: 07/05/2016 Time Performed: 18:18:58 PTAGE: 61 years EKG: SINUS ARRHYTHMIA Poor initial anterior forces. When compared to previous tracing, no signif icant change. ABNORMAL ECG PREVIOUS TRACING : 07/04/2016 14.26 DOCTOR: Arturo Morataya Interpretating Date/Time 07/06/2016 20:51:18
--- NOTE | 2016-07-10 10:38 | MP ---
cc: CARLITOS AGUAYO MD DATE OF SURGERY: 07/05/2016 PREOPERATIVE DIAGNOSIS 1. Eight millimeter right distal ureteral calculus with mild hydronephrosis 2. Right flank pain. 3. Bilateral obstructing stones. 4. History of ESWL. POSTOPERATIVE DIAGNOSIS 1. Eight millimeter right distal ureteral calculus with mild hydronephrosis 2. Right flank pain. 3. Bilateral obstructing stones. 4. History of ESWL. PROCEDURE PERFORMED 1. Cystourethroscopy. 2. Insertion of right ureteral stent. SURGEON Amie ANESTHESIA General. COMPLICATIONS None. PREOPERATIVE ANTIBIOTICS Ancef one gram IV. DRAINS 6 x 28 double-J right ureteral stent. ESTIMATED BLOOD LOSS Zero. DISPOSITION Stable to Recovery. INDICATIONS The patient is a 61-year-old male with a history of kidney stones, who is a patient of Dr. Zaidi. He presented to the ER with a three-day history of severe stabbing right flank pain. The patient had a CT of the abdomen and pelvis without contrast done which showed bilateral nonobstructing stones but also an 8 mm distal right ureteral stone with mild hydronephrosis. The patient has continued to require a significant amount of IV pain medications and his pain has remained uncontrolled. Due to these findings the patient was set up for cystoscopy and stent placement. After the risks, benefits and alternatives were explained to the patient, the patient elected to proceed. Informed consent was obtained. DETAILS OF PROCEDURE The patient was properly identified, brought back to the cystoscopy suite where he was laid supine on the cystoscopy table. A proper timeout was performed. Under the direction of anesthesiology the patient was intubated and induced under general aesthetic. Preoperative antibiotics in the form of Ancef one gram IV was given within one hour start of the procedure. The patient was then placed in dorsal lithotomy position, prepped and draped in normal sterile surgical fashion. I gently passed the rigid cyst cystoscope with a 22-Vietnamese sheath into the patient's bladder per the urethra without any difficulty. The bladder was carefully examined. There was no evidence of any bladder tumors, stones or diverticula. The bladder was mildly trabeculated. Both ureteral orifices were identified and appeared in normal anatomical location. At this time the right ureteral orifice was easily identified and under the guidance of fluoroscopy passed a Sensor wire up into the right kidney. In subsequently passing the wire some debris did efflux out of the right ureteral orifice. With the wire in place I then passed a 6 x 20 double-J stent over the wire up into the right kidney under the guidance of fluoroscopy. The wire was then removed. The proximal curl of the stent appeared to be in the upper pole of the right kidney with a good curl in the bladder. An increased amount of debris did efflux from the right ureteral orifice after placement of the stent. The bladder was then drained. The scope was removed. This concluded the procedure. The patient was extubated and sent to Recovery in stable condition without immediate complications. He will be transferred back to the floor for routine postoperative care. From a urology standpoint it is okay for him to be discharged in the morning to have him follow-up with Dr. Zaidi his urologist for definitive treatment of the stone. MD SAMIRA Bhakta/LEMUEL /7:56 AM /10:24 AM
[2016-07-11] MEDS ORDERED: AMLO10TA2 PO (15:01)
[2016-07-11] MEDS ORDERED: OXYB5TAB10 PO (15:01)
[2016-07-11] MEDS ORDERED: PHEN-426 PO (15:01)
[2016-07-11] MEDS ORDERED: PANT40TA3 PO (15:01)
[2016-08-06] MEDS ORDERED: NAPR220T95 PO (13:27)
[2016-08-06] MEDS ORDERED: TAMS5CAP PO (13:48)
[2016-11-06] MEDS ORDERED: LOSA100T PO (07:50)
[2016-11-16] MEDS ORDERED: ALEV220T14 PO (08:25)
[2016-11-16] MEDS ORDERED: HYDR-3799 PO (08:33)
[2016-11-16] MEDS ORDERED: CLOB0.05 TOPICAL (08:35)
[2016-11-16] MEDS ORDERED: METH125I2 IM (08:36)
[2016-11-21] MEDS ORDERED: CLOB0.05 TOPICAL (08:15)
== END 2016-07-06 10:24 | disposition home or self-care (01) | DRG 694 ==
LOC: NEPB 06:52 → NEDA 13:55 → HOCB 18:09
PROVIDERS: ADMIT Family Medicine; ATTEND Family Medicine
PROC: 0T768DZ Dilation of Right Ureter with Intraluminal Device, Via Natural or Artificial Opening Endoscopic (ICD-10-PCS; principal; 2016-07-05 18:35)
DX: N13.2 Hydronephrosis with renal and ureteral calculous obstruction (principal); N17.9 Acute kidney failure, unspecified; I10 Essential (primary) hypertension; F10.10 Alcohol abuse, uncomplicated; D50.0 Iron deficiency anemia secondary to blood loss (chronic); B18.2 Chronic viral hepatitis C; Z86.73 Personal history of transient ischemic attack (TIA), and cerebral infarction without residual deficits; F17.200 Nicotine dependence, unspecified, uncomplicated; E86.0 Dehydration; I25.10 Atherosclerotic heart disease of native coronary artery without angina pectoris; L40.9 Psoriasis, unspecified; G89.29 Other chronic pain
CPT/HCPCS: 74000; 74176; 80048; 80053; 81001; 82607; 82746; 83690; 84484; 85025; 85027; 90686; 93005; 96361; 96374; 96375; C1769; C2617; J0360; J0690; J1170; J1885; J2250; J2270; J2405; J2710; J3010; J7030; J7120; Q2038

== ENCOUNTER → 2016-07-19 | Day surgery (SDC) | payer OTHER ==
[~2016-07-19] VITALS: Ht 185.4 cm; Wt 79.3 kg
[~2016-07-19] MED LIST changes: +*ENALAPRILAT 1.25 MG/ML VIAL PERIprocedural Use ONLY ONE; +*RESP: ALBUTEROL 2.5 MG/3 ML NEB (PRN) PERIprocedural Use ONLY NEB ONE; +ACETAMINOPHEN 1000 MG/100 ML VIAL IV ONE; +ALEV220T14 PO; +AMPICILLIN 1 GM/NS 100 ML IV SCH; +CLOB0.05 TOPICAL; +FAMOTIDINE 20 MG/2 ML VIAL ONE; +GENTAMICIN INJ 240 MG in SODIUM CHLORIDE 0.9% INJ 100 ML IV SCH; +HYDR-3799 PO; +INSULIN HUMAN REGULAR 1,000 UNITS/10 ML VIAL SQ PRN; +KETOROLAC TROMETHAMINE 30 MG/ML (IVP) VIAL ONE; +LABETALOL HCL 100 MG/20 ML VIAL ONE; +LACTATED RINGER'S 1000 ML INJ 1,000 ML IV ONE; +LACTATED RINGER'S 1000 ML IV SCH; -MEDI220T PO; +METH125I2 IM; +METOPROLOL TARTRATE 25 MG TAB PO PRN; +MIDAZOLAM HCL 2 MG/2 ML VIAL ONE; +NAPR220T95 PO; +NEOSTIGMINE 3 MG/3 ML SYR IV ONE; +ONDANSETRON HCL 4 MG/2 ML VIAL IV PUSH ONE; +OXYB5TAB10 PO; +OXYC1TAB36 PO; +PANT40TA3 PO; +PHEN-426 PO; +PROPOFOL 200 MG/20 ML AMP IV ONE; -PROT40TA PO; +SODIUM CHLORID 0.9% 500 ML IV SCH; +TAMS5CAP PO; +fentaNYL CITRATE 250 MCG/5 ML AMP ONE
[2016-07-19 10:33] VITALS: BP 162/94; PULSE 75; RESP 20; TEMP 97.5; O2SAT 98
--- NOTE | 2016-07-19 14:46 | PD.OP ---
Operative Report Date of Surgery: Jul 19, 2016 Preoperative Diagnosis: Right ureteral and renal calculi Postoperative Diagnosis: Same Procedure: cystoscopy; right JJ stent removal; right ureteroscopy; stone extraction; right JJ stent change Anesthesia: CHECO Surgeon: Oscar Zaidi Canopy Inspector(s): none Operation and Findings: 61-year-old male with history of 1 cm right ureteral stone. Patient presented a few weeks ago and underwent cystoscopy right double-J stent insertion by . Patient had stones along the right ureter as well as in the right kidney. Decision made during the patient to the operating room undergo cystoscopy with right ureteroscopy and possible laser lithotripsy with stone extraction and stent exchange. Risk and benefits were discussed preoperatively and the patient is willing to proceed. Patient is brought to the operating room and identified by myself as Colton Linares. He is placed in dorsal lithotomy position, prepped and draped in usual sterile fashion, received preprocedure antibiotics, general endotracheal tube anesthesia was administered. 22 Icelandic cystoscope was inserted into the bladder. Using an alligator grasper, the stent was brought to the urethral meatus. An 03-5 sensor wire was then passed through the stent with a good curl in the kidney and the stent was removed over the wire leaving the wire in place. Initially, a rigid ureteroscope was passed into the lower ureter. Small stone fragments were identified. No stones were identified in the proximal ureter. The rigid ureteroscope was then removed. A navigator ureteral access sheath was then passed over the wire. The wire was then removed. Flexible ureteroscope was then passed through the ureteral access sheath and up into the lower pole of the right kidney. Small to medium size fragments were identified and using the Nitnol basket, the stones were retrieved. Once the lower pole was cleared of stone burden, the flexible ureteroscope was then removed. The 03-5 sensor wire was then passed through the ureteral access sheath and left with a good curl in the kidney. The ureteral access sheath was then removed. The cystoscope was back loaded over the wire and then a 24 cm 6 Icelandic right double-J stent was placed with good curl in the kidney and a good curl in the bladder. The bladder was then evacuated. Stone fragments were sent to pathology for analysis. The patient was awoken and transferred to her room in stable condition. He'll follow-up in one week to undergo cystoscopy with stent pull in the office. Oscar Zaidi DO Jul 19, 2016 14:46
[2016-07-19 16:15] VITALS: BP 155/84; PULSE 71; RESP 16; TEMP 96.1; O2SAT 97
== END | disposition home or self-care (01) ==
LOC: HSDC 09:50
PROVIDERS: ATTEND Urology
DX: N20.0 Calculus of kidney (principal); N20.1 Calculus of ureter
CPT/HCPCS: 00918; 52352; 82370; 88300; C1769; C2617; J0131; J0290; J1580; J1885; J2250; J2405; J2710; J3010; J7120; J7613; 94664

== ENCOUNTER 2016-11-29 18:17 | Emergency (ER) | payer OTHER ==
[~2016-11-29] VITALS: Ht 185.4 cm; Wt 81.0 kg
[~2016-11-29 18:17] MED LIST changes: -*ENALAPRILAT 1.25 MG/ML VIAL PERIprocedural Use ONLY ONE; -*RESP: ALBUTEROL 2.5 MG/3 ML NEB (PRN) PERIprocedural Use ONLY NEB ONE; -ACETAMINOPHEN 1000 MG/100 ML VIAL IV ONE; -AMPICILLIN 1 GM/NS 100 ML IV SCH; -FAMOTIDINE 20 MG/2 ML VIAL ONE; -GENTAMICIN INJ 240 MG in SODIUM CHLORIDE 0.9% INJ 100 ML IV SCH; -INSULIN HUMAN REGULAR 1,000 UNITS/10 ML VIAL SQ PRN; -KETOROLAC TROMETHAMINE 30 MG/ML (IVP) VIAL ONE; -LABETALOL HCL 100 MG/20 ML VIAL ONE; -LACTATED RINGER'S 1000 ML INJ 1,000 ML IV ONE; -LACTATED RINGER'S 1000 ML IV SCH; -METH125I2 IM; -METOPROLOL TARTRATE 25 MG TAB PO PRN; -MIDAZOLAM HCL 2 MG/2 ML VIAL ONE; -NAPR220T95 PO; -NEOSTIGMINE 3 MG/3 ML SYR IV ONE; -ONDANSETRON HCL 4 MG/2 ML VIAL IV PUSH ONE; -OXYB5TAB10 PO; -OXYC1TAB36 PO; -PHEN-426 PO; -PROPOFOL 200 MG/20 ML AMP IV ONE; -SODIUM CHLORID 0.9% 500 ML IV SCH; -TAMS5CAP PO; -fentaNYL CITRATE 250 MCG/5 ML AMP ONE
[2016-11-29 18:27] VITALS: BP 139/77; PULSE 80; RESP 20; TEMP 97.8; O2SAT 97
[2016-11-29] MEDS ORDERED: SODIUM CHLOR 0.9% 1000 ML INJ 1,000 ML IV ONE (22:00)
[2016-11-29] MEDS ORDERED: SODIUM CHLORIDE 0.9% FLUSH 10 ML FLUSH IVF PRN (22:00)
[2016-11-29] MEDS ORDERED: HYDROmorphone HCL PF 1 MG/ML VIAL IVS ONE (22:00)
[2016-11-29] MEDS ORDERED: ONDANSETRON HCL 4 MG/2 ML VIAL IVP ONE (22:00)
[2016-11-29] MEDS ORDERED: KETOROLAC TROMETHAMINE 30 MG/ML (IVP) VIAL IVP ONE (22:00)
--- NOTE | 2016-11-29 22:07 | PD ---
HPI . Right flank pain Chief Complaint: Flank/Kidney Pain Time Seen by Provider: 21:53 Travel History International Travel<30 days: No Contact w/Intl Traveler<30days: No Traveled to known affect area: No History of Present Illness HPI Patient presents with a chief complaint of right flank pain. Onset was about 4 days ago. He states that it started as pain in the right back. Now it has moved down to include the right testicle as well. He rates the pain at 10/10. Pain is exacerbated by movement and deep breathing. Pain is associated with nausea and diaphoresis. PFSH Past Medical History Hx Anticoagulant Therapy: Yes (ASPIRIN) Arthritis: Yes Blood Disorders: Yes (bleeds easily) Anxiety: No Depression: No Heart Rhythm Problems: No Cancer: No Cardiac Catheterization: Yes Cardiovascular Problems: Yes (HTN) High Cholesterol: No Chest Pain: No Congestive Heart Failure: No Cerebrovascular Accident: Yes Diabetes: No Diminished Hearing: No Endocrine: No Gastrointestinal Disorders: Yes Genitourinary: Yes (kidney stones) Hepatitis: Yes (C) Hiatal Hernia: Yes Hypertension: Yes ( 2 cardiac caths) Immune Disorder: No Implanted Vascular Access Dvce: No Kidney Stones: Yes Musculoskeletal: Yes (ruptured right bicep) Neurologic: Yes (TIA x ) Psychiatric: Yes (Hx alcohol abuse) Reproductive: No Respiratory: No Integumentary: Yes (PSORIASIS) Migraines: No Renal Failure: No Seizures: No Thyroid Disease: No Past Surgical History Abdominal Surgery: No AICD: No Arteriovenous Shunt: No Body Medical Devices: RIGHT SIDE URETERAL STENT Ear Surgery: No Endocrine Surgery: No Eye Surgery: No Genitourinary Surgery: Yes (LITHOTRIPSY, STENT PLACEMENT) Gynecologic Surgery: No Insulin Pump: No Joint Replacement: No Oral Surgery: No Pacemaker: No Tonsillectomy: Yes Other Surgery: Yes (tennis elbow, carpal tunnel, rotator cuff, hiatal hernia) Social History Alcohol Use: Yes (vodka daily) Tobacco Use: Yes (2ppd) Substance Use: No Allergies-Medications (Allergen,Severity, Reaction): Coded Allergies: Darvocet-N 100 (Verified Allergy, Severe, Hives, 11/16/16) Reported Meds & Prescriptions Reported Meds & Active Scripts Active Keflex (Cephalexin) 500 Mg Capsule 500 Mg PO Q8H 10 Days Flomax (Tamsulosin HCl) 0.4 Mg Cap 0.4 Mg PO HS Phenergan (Promethazine HCl) 25 Mg Tablet 25 Mg PO Q6H PRN Percocet (Oxycodone-Acetaminophen) 5-325 mg Tab 1-2 Tab PO Q4H PRN Clobetasol Topical (Clobetasol Propionate) 0.05% Oint 1 Applic TOPICAL BID Hydralazine HCl 25 Mg Tablet 25 Mg PO BID Losartan (Losartan Potassium) 100 Mg Tab 100 Mg PO DAILY Reported Aleve Arthritis (Naproxen Sodium) 220 Mg Tab 220 Mg PO BID Pantoprazole (Pantoprazole Sodium) 40 Mg Tab 40 Mg PO BID Review of Systems Except as stated in HPI: all other systems reviewed are Neg General / Constitutional: Positive: Other, No: Fever, Chills Gastrointestinal: Positive: Nausea (diaphoresis) Genitourinary: Positive: Flank Pain Physical Exam Narrative GENERAL: Awake and alert and in no acute distress. SKIN: Warm and dry. HEAD: Atraumatic. Normocephalic. EYES: Pupils equal and round. Extraocular movements are intact. NECK: Trachea midline. Neck is supple. CARDIOVASCULAR: Regular rate and rhythm. RESPIRATORY: No accessory muscle use. ABDOMEN: Positive right CVA tenderness. Soft and nontender. Bowel sounds are present. MUSCULOSKELETAL: No obvious deformities. No edema. NEUROLOGICAL: Awake and alert. No obvious cranial nerve deficits. Motor grossly within normal limits. Normal speech. PSYCHIATRIC: Appropriate mood and affect; insight and judgment normal. Data Data Last Documented VS Vital Signs Date Time Temp Pulse Resp B/P Pulse Ox O2 Delivery O2 Flow Rate FiO2 11/29/16 18:27 97.8 80 20 139/77 97 Room Air Orders Urinalysis - C+S If Indicated (11/29/16 21:53) Ct Abd/Pel W/O Iv Contrast (11/29/16 21:53) Ketorolac Inj (Toradol Inj) (11/29/16 22:00) Ondansetron Inj (Zofran Inj) (11/29/16 22:00) Sodium Chloride 0.9% Flush (Ns Flush) (11/29/16 22:00) Hydromorphone Pf Inj (Dilaudid Pf Inj) (11/29/16 22:00) Sodium Chlor 0.9% 1000 Ml Inj (Ns 1000 M (11/29/16 22:00) Hydromorphone Pf Inj (Dilaudid Pf Inj) (11/29/16 23:15) Tamsulosin (Flomax) (11/29/16 23:15) Urine Culture (11/29/16 23:00) Ceftriaxone Inj (Rocephin Inj) (11/29/16 23:45) Labs Laboratory Tests Test 11/29/16 23:00 Urine Color YELLOW Urine Turbidity HAZY Urine pH 5.5 Urine Specific [place] 1.015 Urine Protein 30 mg/dL Urine Glucose (UA) NEG mg/dL Urine Ketones NEG mg/dL Urine Occult Blood MOD Urine Nitrite NEG Urine Bilirubin NEG Urine Urobilinogen LESS THAN 2.0 MG/DL Urine Leukocyte Esterase MOD Urine RBC /hpf Urine WBC 13 /hpf Urine Transitional Epithelial <1 /hpf Cells Urine Bacteria RARE /hpf Urine Hyaline Casts 4 /lpf Urine Mucus FEW /lpf Microscopic Urinalysis Comment CULTURE INDICATED MDM Medical Decision Making Medical Screen Exam Complete: Yes Emergency Medical Condition: Yes Differential Diagnosis Differential diagnosis of flank pain includes but is not limited to kidney stone , pyelonephritis, musculoskeletal pain, PE Narrative Course Patient presents with right flank pain. He will be IV fluids and IV analgesics. UA and CT will be done. Last Impressions Abdomen/Pelvis CT 11/29/162152 Signed Impressions: Service Date/Time: November 22:02 - CONCLUSION: 4 mm calcified stone in the proximal right ureter causing mild right hydronephrosis. Dejuan Ulloa MD Pain mildly improved. Will give Dilaudid and Flomax. Laboratory Tests Test 11/29/16 23:00 Urine Color YELLOW Urine Turbidity HAZY Urine pH 5.5 Urine Specific [place] 1.015 Urine Protein 30 mg/dL Urine Glucose (UA) NEG mg/dL Urine Ketones NEG mg/dL Urine Occult Blood MOD Urine Nitrite NEG Urine Bilirubin NEG Urine Urobilinogen LESS THAN 2.0 MG/DL Urine Leukocyte Esterase MOD Urine RBC /hpf Urine WBC 13 /hpf Urine Transitional Epithelial <1 /hpf Cells Urine Bacteria RARE /hpf Urine Hyaline Casts 4 /lpf Urine Mucus FEW /lpf Microscopic Urinalysis Comment CULTURE INDICATED He'll be given a dose of IV Rocephin. He will be discharged with Keflex. Patient now feels better and ready to go home. Diagnosis Primary Impression: Right flank pain Additional Impressions: Kidney stone Urinary tract infection Qualified Code: N39.0 - Urinary tract infection without hematuria, site unspecified Referrals: Joe Holloway MD Patient Instructions: General Instructions, Kidney Stones (DC), Narcotic given in the ED Med/Other Pt SpecificInfo: Prescription(s) given Scripts Cephalexin (Keflex)500 Mg [id number] Mg PO Q8H 10 Days Ref 0 Prov:Kelsey Platt MD 11/29/16 Tamsulosin (Flomax)0.4 Mg Cap0.4 Mg PO HS #30 CAP Ref 0 Prov:Kelsey Platt MD 11/29/16 Promethazine (Phenergan)25 Mg [id number] Mg PO Q6H PRN (NAUSEA OR VOMITING) #12 TAB Ref 0 Prov:Kelsey Platt MD 11/29/16 Oxycodone-Acetaminophen (Percocet)5-325 mg Tab1-2 Tab PO Q4H PRN (PAIN) #15 TAB Ref 0 Prov:Kelsey Platt MD 11/29/16 Disposition: 01 DISCHARGE HOME Condition: Stable Kelsey Platt MD Nov 29, 2016 22:07
--- NOTE | 2016-11-29 22:22 | RADRPT ---
EXAM DATE/TIME: 11/29/2016 22:02 [facility] COMPARISON: CT ABDOMEN & PELVIS W/O CONTRAST, July 04, 2016, 11:15. INDICATIONS : Right flank pain. ORAL CONTRAST: No oral contrast ingested. RADIATION DOSE: 7.22 CTDIvol (mGy) MEDICAL HISTORY : Hypertension. Hernia, hiatal. Renal calculi.Hepatitis C. SURGICAL HISTORY : None. ENCOUNTER: Initial ACUITY: 1 day PAIN SCALE: 8/10 LOCATION: Right flank TECHNIQUE: Volumetric scanning of the abdomen and pelvis was performed. Using automated exposure control and ad justment of the mA and/or kV according to patient size, radiation dose was kept as low as reasonably achievable to obtain optimal diagnostic quality images. DICOM format image data is available electro nically for review and comparison. FINDINGS: There is a 4 mm calcified stone in the proximal right ureter causing mild right hydronephrosis. Ther e is also some periureteral stranding along the mid ureter (distal to the obstructing stone). There is a 6 mm calcified stone in the lower pole the right kidney which is increased in size compared to C T of June 2016. On the left side, there is a 1 cm partially staghorn calculus in the lower pole without evidence of h ydronephrosis. The left ureter is normal in dimension without calcified stone. Urinary bladder margins are smooth. No calcifications within the lumen. Prominent prosthetic calcif ications stable from prior. No dilated loops of small or large bowel. The pancreas is grossly intact. No calcified gallstones.. CONCLUSION: 4 mm calcified stone in the proximal right ureter causing mild right hydronephrosis. Dejuan Ulloa MD on November 29, 2016 at 22:13 Board Certified Radiologist. This report was verified electronically.
[2016-11-29] MEDS ORDERED: TAMS5CAP PO (23:09)
[2016-11-29] MEDS ORDERED: PERC5TAB12 PO (23:09)
[2016-11-29] MEDS ORDERED: PROM25TA10 PO (23:09)
[2016-11-29] MEDS ORDERED: TAMSULOSIN HCL 0.4 MG CAP PO ONE (23:15)
[2016-11-29] MEDS ORDERED: HYDROmorphone HCL PF 2 MG/ML VIAL IV PUSH ONE (23:15)
[2016-11-29 23:30] LABS: BACTERIA, URINE RARE /hpf; BLOOD, URINE MOD (NEG); COMMENT (UR) CULTURE INDICATED; CULTURE IF INDICATED CULTURE INDICATED; GLUCOSE,URINE NEG (NEG); HYALINE CAST, URINE 4 /lpf (RARE); KETONE, URINE NEG (NEG); MUCUS URINE FEW /lpf (OCC); NITRITE,URINE NEG (NEG); PH, URINE 5.5 (5.0-8.5); TRANSITIONAL EPI CELLS, URINE <1 /hpf; URINE COLOR YELLOW (YELLW/STRAW)
[2016-11-29] MEDS ORDERED: CEPH-460 PO (23:42)
[2016-11-29] MEDS ORDERED: cefTRIAXone INJ 1,000 MG in SODIUM CHLORIDE 0.9% INJ 25 ML IV ONE (23:45)
[2016-11-30] MEDS ORDERED: HYDR-3799 PO (08:24)
== END 2016-11-30 00:29 | disposition home or self-care (01) ==
LOC: NEPD 18:17
DX: N13.2 Hydronephrosis with renal and ureteral calculous obstruction (principal); N39.0 Urinary tract infection, site not specified; B96.89 Other specified bacterial agents as the cause of diseases classified elsewhere
CPT/HCPCS: 74176; 81001; 87086; 96361; 96365; 96375; 96376; 99285; J0696; J1170; J1885; J2405; J7030

== ENCOUNTER 2017-02-07 23:10 | Emergency (ER) | payer OTHER ==
[~2017-02-07] VITALS: Ht 177.8 cm; Wt 73.0 kg
[~2017-02-07 23:10] MED LIST changes: -AMLO10TA2 PO; -PANT40TA3 PO
[2017-02-08] MEDS ORDERED: MORPHINE SULFATE 4 MG/ML INJ ONE ×2 (01:06→01:41)
[2017-02-08] MEDS ORDERED: HEPARIN SODIUM - SQ 10,000 UNITS/ML VIAL ONE (01:41)
[2017-02-08] MEDS ORDERED: HEPARIN-D5W 25,000 U/250 ML 250 ML ONE (01:41)
[2017-02-08 03:20] VITALS: BP 119/68; PULSE 68; RESP 16; O2SAT 97
[2017-02-08] MEDS ORDERED: oxyCODONE/ACETAMINOPHEN 5 MG/325 MG TAB PO ONE (03:45)
[2017-02-08] MEDS ORDERED: SODIUM CHLORIDE 0.9% FLUSH 10 ML FLUSH IV FLUSH PRN ×2 (04:00)
[2017-02-08] MEDS ORDERED: ONDANSETRON HCL 4 MG/2 ML VIAL IV PRN (04:00)
[2017-02-08] MEDS ORDERED: MORPHINE SULFATE 4 MG/ML INJ IV PUSH ONE ×3 (04:15→07:30)
--- NOTE | 2017-02-08 04:22 | PD ---
HPI Chief Complaint: Chest Pain Time Seen by Provider: 03:40 Travel History International Travel<30 days: No Contact w/Intl Traveler<30days: No Traveled to known affect area: No History of Present Illness HPI Patient is a 61 year old male who comes in complaining of chest pain. He says he started to feel unwell at work. He says he felt weakness and fell to his knees. He then felt pressure in his chest radiating up into his jaw. He has felt nauseous, but not had any vomiting. He took 2 baby aspirin at home prior to coming in. He denies any shortness of breath, cough or cold. He says he had a cardiac catheter about 6 years ago and was told he had some blockage, but he does not have any stents. PFSH Past Medical History Hx Anticoagulant Therapy: Yes (ASPIRIN) Arthritis: Yes Blood Disorders: Yes (bleeds easily) Anxiety: No Depression: No Heart Rhythm Problems: No Cancer: No Cardiac Catheterization: Yes Cardiovascular Problems: Yes (HTN) High Cholesterol: No Chest Pain: No Congestive Heart Failure: No Cerebrovascular Accident: Yes Diabetes: No Diminished Hearing: No Endocrine: No Gastrointestinal Disorders: Yes Genitourinary: Yes (kidney stones) Headaches: No Hepatitis: Yes (C) Hiatal Hernia: Yes Hypertension: Yes ( 2 cardiac caths) Immune Disorder: No Implanted Vascular Access Dvce: No Kidney Stones: Yes Musculoskeletal: Yes (ruptured right bicep) Neurologic: Yes (TIA x ) Psychiatric: Yes (Hx alcohol abuse) Reproductive: No Respiratory: No Integumentary: Yes (PSORIASIS) Migraines: No Renal Failure: No Seizures: No Thyroid Disease: No Past Surgical History Abdominal Surgery: No AICD: No Arteriovenous Shunt: No Body Medical Devices: RIGHT SIDE URETERAL STENT Ear Surgery: No Endocrine Surgery: No Eye Surgery: No Genitourinary Surgery: Yes (LITHOTRIPSY, STENT PLACEMENT) Gynecologic Surgery: No Insulin Pump: No Joint Replacement: No Oral Surgery: No Pacemaker: No Tonsillectomy: Yes Other Surgery: Yes (tennis elbow, carpal tunnel, rotator cuff, hiatal hernia) Social History Alcohol Use: Yes (rarely ) Tobacco Use: Yes (2ppd) Substance Use: No Allergies-Medications (Allergen,Severity, Reaction): Coded Allergies: acetaminophen (Unverified Allergy, Severe, Hives, 02/08/17) propoxyphene (Unverified Allergy, Severe, Hives, 02/08/17) Reported Meds & Prescriptions Reported Meds & Active Scripts Active Losartan (Losartan Potassium) 100 Mg Tab 100 Mg PO DAILY Hydralazine HCl 25 Mg Tablet 25 Mg PO DAILY Clobetasol Topical (Clobetasol Propionate) 0.05% Oint 1 Applic TOPICAL BID Reported Aleve Arthritis (Naproxen Sodium) 220 Mg Tab 220 Mg PO BID Review of Systems Except as stated in HPI: all other systems reviewed are Neg General / Constitutional: No: Fever, Chills Eyes: No: Blurred Vision HENT: No: Headaches, Lightheadedness Cardiovascular: Positive: Chest Pain or Discomfort Respiratory: No: Shortness of Breath Gastrointestinal: No: Nausea, Vomiting Musculoskeletal: No: Myalgias, Edema Skin: No Rash, No Change in Pigmentation Neurologic: No: Weakness, Dizziness Physical Exam Narrative GENERAL: Awake and alert, in no acute distress. SKIN: Focused skin assessment warm/dry. HEAD: Atraumatic. Normocephalic. EYES: Pupils equal and round. No scleral icterus. ENT: No nasal bleeding or discharge. Mucous membranes pink and moist. NECK: Trachea midline. No JVD. CARDIOVASCULAR: Regular rate and rhythm. No murmur appreciated. RESPIRATORY: No accessory muscle use. Clear to auscultation. Breath sounds equal bilaterally. GASTROINTESTINAL: Abdomen soft, non-tender, nondistended. MUSCULOSKELETAL: No obvious deformities. No clubbing. No cyanosis. No edema. NEUROLOGICAL: Awake and alert. No obvious cranial nerve deficits. Motor grossly within normal limits. Normal speech. PSYCHIATRIC: Appropriate mood and affect; insight and judgment normal. [facility] Medical Decision Making Medical Screen Exam Complete: Yes Emergency Medical Condition: Yes Medical Record Reviewed: Yes Interpretation(s) ECG shows NSR, no ST elevation or depression Differential Diagnosis ACS vs NSTEMI vs STEMI Narrative Course Patient is a 61-year-old male comes in complaining of chest pain. Exam shows no acute abnormalities. IV established, labs sent. Patient connected to the tank processor. Patient took aspirin at home. Given morphine for pain. Labs show no acute abnormality. Troponin is negative. Chest x-ray shows no acute abnormalities. CT head shows no acute abnormalities. He was given a bolus dose of heparin, no other blood thinners. He took aspirin at home. He will be placed in chest pain center for further management. Diagnosis Primary Impression: Chest pain Qualified Codes: R07.9 - Chest pain, unspecified Admitting Information Admitting Physician Requests: Observation Condition: Stable Yareli Esteves MD Feb 08, 2017 04:21
[2017-02-08 04:54] LABS: AUTOMATED NEUTROPHIL # 7.4 TH/MM3 (1.8-7.7); BASOPHIL % 0.3 % (0.0-2.0); EOSINOPHIL # 0.4 TH/MM3 (0-0.4); EOSINOPHIL % 3.5 % (0.0-4.0); HEMATOCRIT 41.6 % (39.0-51.0); HEMO FLAGS DIFF FINAL; LYMPH % 22.4 % (9.0-44.0); LYMPHOCYTE # 2.5 TH/MM3 (1.0-4.8); MEAN CELL VOLUME 104.2 FL (80.0-100.0); MEAN CORPUSCULAR HEMOGLOBIN 36.2 PG (27.0-34.0); MEAN CORPUSCULAR HGB CONC 34.8 % (32.0-36.0); MONO % 6.8 % (0.0-8.0); PLATELET COUNT 234 TH/MM3 (150-450); RED CELL DISTRIBUTION WIDTH 14.2 % (11.6-17.2)
[2017-02-08 05:11] LABS: APTT (PATIENT) 27.1 SEC (24.3-30.1); INTERNATIONAL NORMALIZED RATIO 0.9 RATIO; PROTHROMBIN TIME - PATIENT 10.4 SEC (9.8-11.6)
[2017-02-08 06:15] VITALS: BP 116/75; PULSE 61; RESP 16; O2SAT 96
[2017-02-08 07:02] LABS: ALKALINE PHOSPHATASE 83 U/L (45-117); AST (GOT) 217 U/L (15-37); BLOOD UREA NITROGEN 30 MG/DL (7-18); GLOMERULAR FILTRATION RATE 25 ML/MIN (>89)
[2017-02-08 07:03] LABS: ALT (GPT) 213 U/L (12-78); ANION GAP 10 MEQ/L (5-15); CHLORIDE 106 MEQ/L (98-107); CREATINE KINASE 140 U/L (39-308); POTASSIUM 3.8 MEQ/L (3.5-5.1); SODIUM (NA) 139 MEQ/L (136-145); TOTAL BILIRUBIN ADULT 0.5 MG/DL (0.2-1.0)
[2017-02-08 07:04] LABS: CREATINE KINASE 115 U/L (39-308)
[2017-02-08 07:25] VITALS: BP 131/80; PULSE 58; RESP 18; O2SAT 98
[2017-02-08 07:41] LABS: CREATINE KINASE 106 U/L (39-308)
[2017-02-08] MEDS ORDERED: HEPARIN SODIUM - IV 10,000 UNITS/10 ML VIAL IV PRN ×2 (08:15)
[2017-02-08] MEDS ORDERED: HEPARIN 25,000 UNITS-D5W 250 ML - PREMIX IV SCH (08:15)
[2017-02-08] MEDS ORDERED: HEPARIN SODIUM - IV 10,000 UNITS/10 ML VIAL IV ONE (08:15)
--- NOTE | 2017-02-08 09:00 | RADRPT ---
EXAM DATE/TIME: 02/08/2017 00:13 [facility] COMPARISON: CT BRAIN W/O CONTRAST, December 03, 2014, 5:23. INDICATIONS : Syncopal episode. RADIATION DOSE: 52.13 CTDIvol (mGy) MEDICAL HISTORY : Cerebrovascular disease. SURGICAL HISTORY : None. ENCOUNTER: Initial ACUITY: 1 day PAIN SCALE: 5/10 LOCATION: cranial TECHNIQUE: Multiple contiguous axial images were obtained of the head. Using automated exposure control and adj ustment of the mA and/or kV according to patient size, radiation dose was kept as low as reasonably a chievable to obtain optimal diagnostic quality images. DICOM format image data is available electro nically for review and comparison. FINDINGS: CEREBRUM: The ventricles are normal for age. Old white matter lacunar type infarct in the left saul radiata. No evidence of midline shift, mass lesion, hemorrhage or acute infarction. No extra-axial fluid col lections are seen. POSTERIOR FOSSA: Stable, symmetric cerebellar atrophy. The 4th ventricle is midline. The cerebellopontine angle is u nremarkable. EXTRACRANIAL: The visualized portion of the orbits is intact. SKULL: The calvaria is intact. No evidence of skull fracture. CONCLUSION: 1. Old white matter infarct in the left high parietal convexity. 2. Stable, symmetric cerebellar atrophy. 3. Nothing acute. Herman Handley MD on February 08, 2017 at 0:29 Board Certified Radiologist. This report was verified electronically.
--- NOTE | 2017-02-08 09:02 | RADRPT ---
EXAM DATE/TIME: 02/08/2017 00:15 [facility] COMPARISON: CHEST SINGLE AP, December 03, 2014, 4:32. INDICATIONS : Syncopal episode and pressure in entire chest. MEDICAL HISTORY : None. SURGICAL HISTORY : None. ENCOUNTER: Initial ACUITY: 1 day PAIN SCORE: 5/10 LOCATION: chest FINDINGS: A single view of the chest demonstrates the lungs to be symmetrically aerated without evidence of mas s, infiltrate or effusion. Minimal atelectasis/scarring in the left lingula. The cardiomediastinal c ontours are unremarkable. Osseous structures are intact with a mild dextroscoliosis of the dorsal sp ine. CONCLUSION: 1. Minimal atelectasis/scarring in the left lingula. 2. Otherwise, lungs are clear. No acute. Herman Handley MD on February 08, 2017 at 0:32 Board Certified Radiologist. This report was verified electronically.
[2017-02-08] MEDS ORDERED: SODIUM CHLOR 0.9% 1000 ML INJ 1,000 ML IV ONE (09:30)
[2017-02-08] MEDS ORDERED: hydrALAZINE HCL 25 MG TAB PO SCH (11:00)
[2017-02-08] MEDS ORDERED: LOSARTAN 50 MG TAB PO SCH (11:00)
--- NOTE | 2017-02-08 11:25 | HHI.HP ---
HPI Primary Care Physician GILBERTO Muller Chief Complaint Chest pain History of Present Illness This is a 61-year-old male with history of hypertension, hepatitis C, psoriasis , tobacco abuse and possible CAD that presents to ED to evaluate chest discomfort. Patient states that while he was at work around 9:30 last evening he developed a discomfort in the center of his chest. [place] as a pressure. It is still there. Worse level is a 10 out of 10. Morphine did seem to help. He was short of breath and nauseous but no diaphoresis. His work was not strenuous. 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 His primary care physician is Dr. Ritter. Denies recent illness. Denies recent travel. Review of Systems General: Patient denies fevers, chills recent, and recent travel HEENT: Patient denies headache, sore throat, difficulty swallowing. Cardiovascular: Has the chest discomfort as mentioned above. Denies sensation of heart beating rapidly or irregularly. No syncope. Denies diaphoresis. Respiratory: He was short of breath. Denies inspirational chest discomfort. Denies coughing wheezing or hemoptysis. GI: He was initially nauseous. Patient denies vomiting, diarrhea, abdominal pain, bloody stools. Musculoskeletal: Patient denies joint pain or edema. Denies calf pain or edema. Neurovascular: Patient denies numbness, tingling, weakness in extremities. Denies headache. Endocrine: Denies polyuria and polydipsia. Hematologic: Denies easy bruising. Skin: Chronic rash on his legs which she states is from psoriasis. Past Family Social History Allergies: Coded Allergies: acetaminophen (Unverified Allergy, Severe, Hives, 02/08/17) propoxyphene (Unverified Allergy, Severe, Hives, 02/08/17) Past Medical History Hypertension, psoriasis, tobacco abuse. CAD via cardiac catheterization. In 2011 and 2014 of 20-25% of the mid LAD. Past Surgical History Noncontributory Reported Medications Reported Meds & Active Scripts Active Losartan (Losartan Potassium) 100 Mg Tab 100 Mg PO DAILY Hydralazine HCl 25 Mg Tablet 25 Mg PO DAILY Active Ordered Medications Current Medications Medications (Trade) Dose Ordered Sig/Robson Route Start Time Stop Time Status Last Admin (NS Flush) 2 ml UNSCH PRN IV FLUSH 02/08/17 04:00 (NS Flush) 2 ml UNSCH PRN IV FLUSH 02/08/17 04:00 (Zofran Inj) 4 mg Q6H PRN IV 02/08/17 04:00 02/08/17 07:46 (Apresoline) 25 mg DAILY PO 02/08/17 11:00 02/08/17 10:12 (Cozaar) 100 mg DAILY PO 02/08/17 11:00 02/08/17 10:12 Family History States that his mother at age 83 in her sleep a myocardial infarction. Social History Patient smokes 1-1/2 pack of cigarettes daily for 40 years. Denies alcohol or illicit drugs. 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 Physical Exam Vital Signs Vital Signs Date Time Temp Pulse Resp B/P (MAP) Pulse Ox O2 Delivery O2 Flow Rate FiO2 02/08/17 07:26 64 02/08/17 07:25 58 18 131/80 (97) 98 Room Air 02/08/17 06:15 61 16 116/75 (89) 96 Nasal Cannula 2.00 02/08/17 03:20 68 16 119/68 (85) 97 02/08/17 03:20 97 Room Air 2.00 Physical Exam GENERAL: This is a well-nourished, well-developed patient, in no apparent distress. Patient speaks in clear complete sentences. Patient is pleasant. HEENT: Head is atraumatic and normocephalic. Neck is supple without lymphadenopathy and trachea is midline. No JVD or carotid bruits. CARDIOVASCULAR: Regular rate and rhythm without murmurs, gallops, or rubs. RESPIRATORY: There are expiratory wheezing. Breath sounds equal bilaterally. No rales, or rhonchi. Chest wall is tender. No use of accessory muscles. GASTROINTESTINAL: Abdomen is nontender, nondistended. Abdomen soft. No obvious pulsatile mass or bruit. No CVA tenderness. Strong femoral pulses bilaterally. Normal bowel sounds in all quadrants. MUSCULOSKELETAL: Patient is moving upper and lower extremities freely. No calf tenderness or edema, no Homans sign. Strong pulses in upper and lower extremities. NEUROLOGICAL: Patient is alert and oriented. Cranial nerves 2-12 are grossly intact. No focal deficits and speech is clear. SKIN: Excoriations and plaques on the anterior aspects of lower legs from his psoriasis rash which is chronic. No surrounding erythema or drainage. Laboratory Laboratory Tests Test 02/07/17 23:55 02/08/17 02:30 02/08/17 06:15 White Blood Count 11.0 Red Blood Count 4.00 Hemoglobin 14.5 Hematocrit 41.6 Mean Corpuscular Volume 104.2 Mean Corpuscular Hemoglobin 36.2 Mean Corpuscular Hemoglobin Concent 34.8 Red Cell Distribution Width 14.2 Platelet Count 234 Mean Platelet Volume 8.8 Neutrophils (%) (Auto) 67.0 Lymphocytes (%) (Auto) 22.4 Monocytes (%) (Auto) 6.8 Eosinophils (%) (Auto) 3.5 Basophils (%) (Auto) 0.3 Neutrophils # (Auto) 7.4 Lymphocytes # (Auto) 2.5 Monocytes # (Auto) 0.7 Eosinophils # (Auto) 0.4 Basophils # (Auto) 0.0 CBC Comment DIFF FINAL Differential Comment Prothrombin Time 10.4 Prothromb Time International Ratio 0.9 Activated Partial Thromboplast Time 27.1 Blood Urea Nitrogen 30 Creatinine 2.63 Random Glucose 70 Total Protein 8.5 Albumin 4.0 Calcium Level 8.5 Alkaline Phosphatase 83 Aspartate Amino Transf (AST/SGOT) 217 Alanine Aminotransferase (ALT/SGPT) 213 Total Bilirubin 0.5 Sodium Level 139 Potassium Level 3.8 Chloride Level 106 Carbon Dioxide Level 23.0 Anion Gap 10 Estimat Glomerular Filtration Rate 25 Total Creatine Kinase 140 115 106 Troponin I LESS THAN 0.02 LESS THAN 0.02 LESS THAN 0.02 B-Type Natriuretic Peptide 36 Result Diagram: 02/07/17235402/07/172354 Course Sinus rhythm/sinus arrhythmia without significant ST segment depressions or elevations. Caprini VTE Risk Assessment Caprini VTE Risk Assessment: No/Low Risk (score <= 1) Caprini Risk Assessment Model Point Value = 1 Point Value = 2 Point Value = 3 Point Value = 5 Age 41-60 Minor surgery BMI > 25 kg/m2 Swollen legs Varicose veins or History of unexplained or recurrent spontaneous Oral contraceptives or hormone replacement Sepsis (< 1 month) Serious lung disease, including pneumonia (< 1 month) Abnormal pulmonary function Acute myocardial infarction Congestive heart failure (< 1 month) History of inflammatory bowel disease Medical patient at bed rest Age 61-74 Arthroscopic surgery Major open surgery (> 45 min) Laparoscopic surgery (> 45 min) Malignancy Confined to bed (> 72 hours) Immobilizing plaster cast Central venous access Age >= 75 History of VTE Family history of VTE Factor V Leiden Prothrombin [id number] Lupus anticoagulant Anticardiolipin antibodies Elevated serum homocysteine Heparin-induced thrombocytopenia Other congenital or acquired thrombophilia Stroke (< 1 month) Elective arthroplasty Hip, pelvis, or leg fracture Acute spinal cord injury (< 1 month) Prophylaxis Regimen Total Risk Factor Score Risk Level Prophylaxis Regimen 0-1 Low Early ambulation 2 Moderate Order ONE of the following: *Sequential Compression Device (SCD) *Heparin 5000 units SQ BID 3-4 Higher Order ONE of the following medications: *Heparin 5000 units SQ TID *Enoxaparin/Lovenox 40 mg SQ daily (WT < 150 kg, CrCl > 30 mL/min) *Enoxaparin/Lovenox 30 mg SQ daily (WT < 150 kg, CrCl > 10-29 mL/min) *Enoxaparin/Lovenox 30 mg SQ BID (WT < 150 kg, CrCl > 30 mL/min) AND/OR *Sequential Compression Device (SCD) 5 or more Highest Order ONE of the following medications: *Heparin 5000 units SQ TID (Preferred with Epidurals) *Enoxaparin/Lovenox 40 mg SQ daily (WT < 150 kg, CrCl > 30 mL/min) *Enoxaparin/Lovenox 30 mg SQ daily (WT < 150 kg, CrCl > 10-29 mL/min) *Enoxaparin/Lovenox 30 mg SQ BID (WT < 150 kg, CrCl > 30 mL/min) AND *Sequential Compression Device (SCD) Assessment and Plan Assessment and Plan * Chest pain: 62 patient had serial cardiac enzymes and EKGs for ruling out purposes. He will be seen by Dr. Morataya of cardiology in the chest and [place]. The discomfort seems musculoskeletal. Upon reviewing records cardiac catheterization 2014 reveals coronary angiograph he has stated "left main coronary artery is large and normal appearing. The proximal left anterior descending artery is large and normal appearing. There are 2 small diagonal branches given off. There is about 20-25% narrowing in the mid LAD after the second diagonal, it is located on the band and cannot exclude this being actually a normal segment with the appearance due to the band. The circumflex artery is a large-caliber dominant vessel which appears normal. The right coronary artery is small nondominant which appears normal." Patient likely be discharged home with instructions to follow-up with his primary care physician. Likely not needing stress testing as he had an abnormal stress test in 2011 with essentially a normal cardiac catheterization following. * Renal insufficiency: Patient states that this is new to him. Upon reviewing records, creatinine was 1.18 and GFR was 63 June of this year. He'll be given IV hydration with instructions also to follow-up with his primary care physician within one week to retest his labs. * Elevated LFTs: Patient states he has hepatitis C but was not aware of elevated LFTs. He needs to follow-up with physician regarding this. * Tobacco abuse: Patient has been counseled on importance of smoking cessation. * Hypertension: Continue current medication. Patient is stable at this time. He is agreeable to this plan. Johnathon Dailey Feb 08, 2017 11:25
[2017-02-08] MEDS ORDERED: AMLO5TAB2 PO (12:22)
--- NOTE | 2017-02-08 12:28 | HHI.DCPOC ---
Discharge Care Plan Diagnosis: (1) Chest pain, atypical (2) Renal insufficiency (3) Elevated LFTs (4) HTN (hypertension) (5) Tobacco abuse Goals to Promote Your Health * To prevent worsening of your condition and complications * To maintain your health at the optimal level Directions to Meet Your Goals Take your medications as prescribed Follow your dietary instruction Follow activity as directed Keep your appointments as scheduled Take your immunizations and boosters as scheduled If your symptoms worsen call your PCP, if no PCP go to Urgent Care Center or Emergency Room Smoking is Dangerous to Your Health. Avoid second hand smoke Call the 24-hour hour crisis hotline for domestic abuse at Johnathon Dailey Feb 08, 2017 12:28
--- NOTE | 2017-02-08 14:42 | EKG ---
Date Performed: 02/08/2017 Time Performed: 02:48:24 PTAGE: 61 years EKG: Sinus rhythm WITH MARKED SINUS ARRHYTHMIA BORDERLINE ECG PREVIOUS TRACING : 07/05/2016 18.18 Since previous tracing, no significant change noted DOCTOR: Arturo Morataya Interpretating Date/Time 02/08/2017 14:41:25
--- NOTE | 2017-02-08 14:43 | EKG ---
Date Performed: 02/07/2017 Time Performed: 23:20:43 PTAGE: 61 years EKG: Sinus rhythm WITH SINUS ARRHYTHMIA NONSPECIFIC T-WAVE ABNORMALITY BORDERLINE ECG Since PREVIOUS TRACING , no significant change noted DOCTOR: Arturo Morataya Interpretating Date/Time 02/08/2017 14:43:09
--- NOTE | 2017-02-08 14:49 | EKG ---
Date Performed: 02/08/2017 Time Performed: 06:34:47 PTAGE: 61 years EKG: Sinus rhythm WITH MARKED SINUS ARRHYTHMIA NONSPECIFIC ST & T-WAVE ABNORMALITY BORDERLINE ECG PREVIOUS TRACING : 02/07/2017 17.38 Since previous tracing, no significant change noted DOCTOR: Arturo Morataya Interpretating Date/Time 02/08/2017 14:47:00
[2017-02-22] MEDS ORDERED: AMLO10TA2 PO (09:41)
[2017-02-26] MEDS ORDERED: CLON0.1T PO (13:11)
[2017-03-08] MEDS ORDERED: METH125I2 IM (08:53)
[2017-03-08] MEDS ORDERED: AMLO10TA2 PO (08:56)
[2017-03-08] MEDS ORDERED: CLON0.1T PO (08:56)
[2017-03-08] MEDS ORDERED: TRIA0.5O TOPICAL (09:00)
== END 2017-02-08 13:15 | disposition home or self-care (01) ==
LOC: NEPE 23:10 → NEDA 02-08 02:17 → UNDOADMOB 02-08 02:17 → UNDODISOB 02-08 13:15
DX: R07.89 Other chest pain (principal); N28.9 Disorder of kidney and ureter, unspecified; R79.89 Other specified abnormal findings of blood chemistry; I10 Essential (primary) hypertension; R94.31 Abnormal electrocardiogram [ECG] [EKG]; F17.200 Nicotine dependence, unspecified, uncomplicated; Z79.82 Long term (current) use of aspirin; Z87.39 Personal history of other diseases of the musculoskeletal system and connective tissue; Z86.2 Personal history of diseases of the blood and blood-forming organs and certain disorders involving the immune mechanism; Z86.79 Personal history of other diseases of the circulatory system; Z87.19 Personal history of other diseases of the digestive system; Z87.448 Personal history of other diseases of urinary system; Z86.19 Personal history of other infectious and parasitic diseases; Z86.69 Personal history of other diseases of the nervous system and sense organs; Z87.2 Personal history of diseases of the skin and subcutaneous tissue
CPT/HCPCS: 70450; 71010; 80053; 82550; 83880; 84484; 85025; 85610; 85730; 93005; 96374; 96375; 96376; 99285; J1644; J2270; J2405; J7030

== ENCOUNTER → 2017-02-25 | Outpatient (CLI) | payer OTHER ==
[~2017-02-25] MED LIST changes: -ALEV220T14 PO; +AMLO10TA2 PO; -CLOB0.05 TOPICAL; +CLON0.1T PO; -HYDR-3799 PO; -LOSA100T PO; +METH125I2 IM; +TRIA0.5O TOPICAL
[2017-02-25 09:47] LABS: BICARBONATE 27.6 MEQ/L (21.0-32.0); POTASSIUM 3.6 MEQ/L (3.5-5.1)
== END ==
LOC: CLAB 08:46
PROVIDERS: ATTEND Nurse Practitioner Family
DX: N28.9 Disorder of kidney and ureter, unspecified (principal)
CPT/HCPCS: 36415; 80069

== ENCOUNTER 2017-06-26 17:05 | Emergency (ER) | payer SELFPAY ==
[~2017-06-26] VITALS: Ht 185.4 cm; Wt 76.0 kg
[~2017-06-26 17:05] MED LIST changes: -METH125I2 IM
[2017-06-26 17:06] VITALS: BP 170/88; PULSE 84; RESP 18; TEMP 98.5; O2SAT 99
--- NOTE | 2017-06-26 17:42 | RADRPT ---
EXAM DATE/TIME: 06/26/2017 17:29 [facility] COMPARISON: No previous studies available for comparison. INDICATIONS : Cough and congestion. Fever. Body aches. MEDICAL HISTORY : Hypertension. Hernia, hiatal. Renal calculi.Hepatitis C. SURGICAL HISTORY : None. ENCOUNTER: Initial ACUITY: 3 days PAIN SCORE: 2/10 LOCATION: Bilateral chest FINDINGS: PA and lateral views of the chest demonstrate the lungs to be symmetrically aerated without evidence of mass, infiltrate or effusion. The cardiomediastinal contours are unremarkable. Osseous structure s are intact. CONCLUSION: No acute disease. There is no evidence of pneumonia. Ezekiel Durant MD on June 26, 2017 at 17:38 Board Certified Radiologist. This report was verified electronically.
[2017-06-26 18:19] LABS: AUTOMATED NEUTROPHIL # 5.8 TH/MM3 (1.8-7.7); BASOPHIL % 0.5 % (0.0-2.0); EOSINOPHIL # 0.4 TH/MM3 (0-0.4); EOSINOPHIL % 4.1 % (0.0-4.0); HEMATOCRIT 42.4 % (39.0-51.0); HEMOGLOBIN 14.6 GM/DL (13.0-17.0); LYMPH % 21.1 % (9.0-44.0); MEAN CELL VOLUME 102.7 FL (80.0-100.0); MEAN CORPUSCULAR HEMOGLOBIN 35.4 PG (27.0-34.0); MEAN CORPUSCULAR HGB CONC 34.5 % (32.0-36.0); MEAN PLATELET VOLUME 8.6 FL (7.0-11.0); MONOCYTE # 1.1 TH/MM3 (0-0.9); NEUT % 62.3 % (16.0-70.0); PLATELET COUNT 241 TH/MM3 (150-450); RED BLOOD COUNT 4.13 MIL/MM3 (4.50-5.90); RED CELL DISTRIBUTION WIDTH 13.5 % (11.6-17.2); WHITE BLOOD COUNT 9.3 TH/MM3 (4.0-11.0)
[2017-06-26 18:37] LABS: ALBUMIN 3.6 GM/DL (3.4-5.0); ALT (GPT) 113 U/L (12-78); AST (GOT) 152 U/L (15-37); BICARBONATE 28.4 MEQ/L (21.0-32.0); BLOOD UREA NITROGEN 7 MG/DL (7-18); CALCIUM 9.1 MG/DL (8.5-10.1); CHLORIDE 102 MEQ/L (98-107); CREATININE 1.13 MG/DL (0.60-1.30); GLOMERULAR FILTRATION RATE 66 ML/MIN (>89); GLUCOSE,RANDOM 115 MG/DL (74-106); SODIUM (NA) 140 MEQ/L (136-145)
[2017-06-26 18:49] LABS: ALKALINE PHOSPHATASE 96 U/L (45-117); TOTAL BILIRUBIN ADULT 0.5 MG/DL (0.2-1.0); TOTAL PROTEIN 8.3 GM/DL (6.4-8.2)
[2017-06-26 20:33] VITALS: BP 146/86; PULSE 72; RESP 20; O2SAT 97
[2017-06-26] MEDS ORDERED: POTASSIUM CHLORIDE 20 MEQ CONTROLLED RELEASE TAB PO ONE (20:45)
--- NOTE | 2017-06-26 21:00 | PD ---
HPI . Cough Chief Complaint: Cold / Flu Symptoms Time Seen by Provider: 20:29 Travel History International Travel<30 days: No Contact w/Intl Traveler<30days: No Traveled to known affect area: No History of Present Illness HPI Patient is a 62-year-old male who presents with a 3 day history of a productive cough. Patient reports coughs occur throughout the day though more so at night leading to the patient having to sleep with pillows propping him up. Cough has worsened over the 3 days. Patient reports a wet productive cough of yellow sputum. He cannot recall any aggravating or relieving factors. Patient reports taking Mucinex 2 days ago and saw little benefit. Patient also reports feelings of congested sinuses, body aches, chest tightness, sore throat, difficulty swallowing, rib pain from coughing, and one instance of vomiting on his way to work. Patient denies any blood in his coughs or vomit. PFSH Past Medical History Hx Anticoagulant Therapy: Yes (ASPIRIN) Arthritis: Yes Blood Disorders: Yes (bleeds easily) Anxiety: No Depression: No Heart Rhythm Problems: No Cancer: No Cardiac Catheterization: Yes Cardiovascular Problems: Yes (HTN) High Cholesterol: No Chest Pain: No Congestive Heart Failure: No Cerebrovascular Accident: Yes Diabetes: No Diminished Hearing: No Endocrine: No Gastrointestinal Disorders: Yes Genitourinary: Yes (kidney stones) Headaches: No Hepatitis: Yes (C) Hiatal Hernia: Yes Hypertension: Yes ( 2 cardiac caths) Immune Disorder: No Implanted Vascular Access Dvce: No Kidney Stones: Yes Musculoskeletal: Yes (ruptured right bicep) Neurologic: Yes (TIA x ) Psychiatric: Yes (Hx alcohol abuse) Reproductive: No Respiratory: No Integumentary: Yes (PSORIASIS) Migraines: No Renal Failure: No Seizures: No Thyroid Disease: No Past Surgical History Abdominal Surgery: No AICD: No Arteriovenous Shunt: No Body Medical Devices: RIGHT SIDE URETERAL STENT Ear Surgery: No Endocrine Surgery: No Eye Surgery: No Genitourinary Surgery: Yes (LITHOTRIPSY, STENT PLACEMENT) Gynecologic Surgery: No Insulin Pump: No Joint Replacement: No Oral Surgery: No Pacemaker: No Tonsillectomy: Yes Other Surgery: Yes (tennis elbow, carpal tunnel, rotator cuff, hiatal hernia) Social History Alcohol Use: Yes (rarely ) Tobacco Use: Yes (2ppd) Substance Use: No Allergies-Medications (Allergen,Severity, Reaction): Coded Allergies: acetaminophen (Unverified Allergy, Severe, Hives, 03/08/17) propoxyphene (Unverified Allergy, Severe, Hives, 03/08/17) Reported Meds & Prescriptions Reported Meds & Active Scripts Active Triamcinolone Topical 0.5 % Oint 1 Applic TOPICAL BID Clonidine (Clonidine HCl) 0.1 Mg Tab 0.1 Mg PO BID Amlodipine (Amlodipine Besylate) 10 Mg Tab 10 Mg PO DAILY Review of Systems Except as stated in HPI: all other systems reviewed are Neg General / Constitutional: Positive: Chills HENT: Positive: Sore Throat, Congestion Cardiovascular: Positive: Chest Pain or Discomfort ("Tightness") Respiratory: Positive: Cough, Wheezing, Night Sweats, No: Hemoptysis Gastrointestinal: Positive: Vomiting, No: Hematemesis Musculoskeletal: Positive: Pain Physical Exam Narrative GENERAL: Pleasant male in no acute distress SKIN: warm/dry. HEAD: Normocephalic. EYES: Pupils equal and round. No scleral icterus. No injection or drainage. ENT: No nasal bleeding or discharge. Mucous membranes pink and moist. NECK: Trachea midline. Full range of motion without pain.. CARDIOVASCULAR: Regular rate and rhythm. No clicks, rubs, or gallops. RESPIRATORY: Inspiratory wheezes noted in the mid and lower left lung shepherd. Breath sounds equal bilaterally. GASTROINTESTINAL: Abdomen soft. Nontender. Bowel sounds present. Nondistended. MUSCULOSKELETAL: No obvious deformities. NEUROLOGICAL: Awake and alert. No obvious cranial nerve deficits. Motor grossly within normal limits. Normal speech. PSYCHIATRIC: Appropriate mood and affect; insight and judgment normal. Data Data Last Documented VS Vital Signs Date Time Temp Pulse Resp B/P (MAP) Pulse Ox O2 Delivery O2 Flow Rate FiO2 06/26/17 20:33 72 20 146/86 (106) 97 Room Air 06/26/17 17:06 98.5 Orders Orders Complete Blood Count With Diff (06/26/17 17:22) Comprehensive Metabolic Panel (06/26/17 17:22) Lipase (06/26/17 17:22) Influenzae A/B Antigen (06/26/17 17:22) Chest, Pa & Lat (06/26/17 ) Potassium Chloride (Kcl) (06/26/17 20:45) Labs Laboratory Tests Test 06/26/17 17:40 White Blood Count 9.3 TH/MM3 Red Blood Count 4.13 MIL/MM3 Hemoglobin 14.6 GM/DL Hematocrit 42.4 % Mean Corpuscular Volume 102.7 FL Mean Corpuscular Hemoglobin 35.4 PG Mean Corpuscular Hemoglobin Concent 34.5 % Red Cell Distribution Width 13.5 % Platelet Count 241 TH/MM3 Mean Platelet Volume 8.6 FL Neutrophils (%) (Auto) 62.3 % Lymphocytes (%) (Auto) 21.1 % Monocytes (%) (Auto) 12.0 % Eosinophils (%) (Auto) 4.1 % Basophils (%) (Auto) 0.5 % Neutrophils # (Auto) 5.8 TH/MM3 Lymphocytes # (Auto) 2.0 TH/MM3 Monocytes # (Auto) 1.1 TH/MM3 Eosinophils # (Auto) 0.4 TH/MM3 Basophils # (Auto) 0.0 TH/MM3 CBC Comment DIFF FINAL Differential Comment Blood Urea Nitrogen 7 MG/DL Creatinine 1.13 MG/DL Random Glucose 115 MG/DL Total Protein 8.3 GM/DL Albumin 3.6 GM/DL Calcium Level 9.1 MG/DL Alkaline Phosphatase 96 U/L Aspartate Amino Transf (AST/SGOT) 152 U/L Alanine Aminotransferase (ALT/SGPT) 113 U/L Total Bilirubin 0.5 MG/DL Sodium Level 140 MEQ/L Potassium Level 2.8 MEQ/L Chloride Level 102 MEQ/L Carbon Dioxide Level 28.4 MEQ/L Anion Gap 10 MEQ/L Estimat Glomerular Filtration Rate 66 ML/MIN Lipase 375 U/L MDM Medical Decision Making Medical Screen Exam Complete: Yes Emergency Medical Condition: Yes Differential Diagnosis Differential diagnosis includes but is not limited to viral respiratory illness , bronchitis, pneumonia, allergies, CHF, asthma/COPD. Narrative Course This patient presents for the evaluation of cough. Flu screen is negative. CBC & BMP Diagram 06/26/17 17:40 Total Protein 8.3 H, Albumin 3.6, Calcium Level 9.1, Alkaline Phosphatase 96, Aspartate Amino Transf (AST/SGOT) 152 H, Alanine Aminotransferase (ALT/SGPT) 113 H, Total Bilirubin 0.5 His potassium has been replaced orally. He is not on any medications that should alter his potassium. Last Impressions Chest X-Ray 06/26/17 0000 Signed Impressions: Service Date/Time: Monday, June 26, 2017 17:29 - CONCLUSION: No acute disease. There is no evidence of pneumonia. Ezekiel Durant MD He will be treated for bronchitis with prednisone, Z-Babak and albuterol. Diagnosis Primary Impression: Acute bronchitis Qualified Codes: J20.9 - Acute bronchitis, unspecified Patient Instructions: Acute Bronchitis (DC), General Instructions Med/Other Pt SpecificInfo: Prescription(s) given Scripts Azithromycin (Zithromax Z-Babak) 250 Mg Dspk 250 MG PO DIRECTED for Infection, #1 DSPK 0 Refills 500 MG (2 tabs) day 1, then 1 tab days 2-5. Prov: Kelsey Platt MD 06/26/17 Prednisone (Prednisone) 20 Mg Tab 60 MG PO DAILY for 5 Days, #15 TAB 0 Refills Prov: Kelsey Platt MD 06/26/17 Disposition: 01 DISCHARGE HOME Condition: Stable Kelsey Platt MD Jun 26, 2017 21:00
[2017-06-26] MEDS ORDERED: PRED20 PO (21:19)
[2017-06-26] MEDS ORDERED: ZITHTAB PO (21:19)
[2017-06-26] MEDS ORDERED: predniSONE 20 MG TAB PO ONE (21:30)
[2017-06-27] MEDS ORDERED: ALBUTEROL SULFATE 90 MCG/ACT HFA 8 GM INHALER INH SCH
== END 2017-06-26 21:56 | disposition home or self-care (01) ==
LOC: NEPD 17:05
DX: J20.9 Acute bronchitis, unspecified (principal); I10 Essential (primary) hypertension; F17.200 Nicotine dependence, unspecified, uncomplicated
CPT/HCPCS: 71046; 80053; 83690; 85025; 87804; 94664; 99284; J7512

== ENCOUNTER 2017-08-21 10:21 | Emergency (ER) | payer SELFPAY ==
[~2017-08-21 10:21] MED LIST changes: +PRED20 PO; +ZITHTAB PO
[2017-08-21 10:33] VITALS: BP 161/87; PULSE 81; RESP 16; TEMP 98; O2SAT 100
[2017-08-21 12:28] LABS: AUTOMATED NEUTROPHIL # 3.8 TH/MM3 (1.8-7.7); BASOPHIL % 0.6 % (0.0-2.0); EOSINOPHIL # 0.2 TH/MM3 (0-0.4); EOSINOPHIL % 3.1 % (0.0-4.0); HEMATOCRIT 43.7 % (39.0-51.0); HEMOGLOBIN 15.2 GM/DL (13.0-17.0); LYMPH % 24.8 % (9.0-44.0); LYMPHOCYTE # 1.6 TH/MM3 (1.0-4.8); MEAN CORPUSCULAR HEMOGLOBIN 35.4 PG (27.0-34.0); MEAN CORPUSCULAR HGB CONC 34.6 % (32.0-36.0); MEAN PLATELET VOLUME 9.7 FL (7.0-11.0); MONO % 11.6 % (0.0-8.0); MONOCYTE # 0.7 TH/MM3 (0-0.9); NEUT % 59.9 % (16.0-70.0); PLATELET COUNT 199 TH/MM3 (150-450); RED BLOOD COUNT 4.29 MIL/MM3 (4.50-5.90); RED CELL DISTRIBUTION WIDTH 12.8 % (11.6-17.2); WHITE BLOOD COUNT 6.4 TH/MM3 (4.0-11.0)
[2017-08-21 13:13] LABS: ALBUMIN 3.8 GM/DL (3.4-5.0); ALT (GPT) 133 U/L (12-78); AST (GOT) 209 U/L (15-37); BICARBONATE 22.8 MEQ/L (21.0-32.0); BLOOD UREA NITROGEN 12 MG/DL (7-18); CALCIUM 8.8 MG/DL (8.5-10.1); CHLORIDE 100 MEQ/L (98-107); CREATININE 1.14 MG/DL (0.60-1.30); GLOMERULAR FILTRATION RATE 66 ML/MIN (>89); GLUCOSE,RANDOM 76 MG/DL (74-106); SODIUM (NA) 135 MEQ/L (136-145)
[2017-08-21 13:15] LABS: ALKALINE PHOSPHATASE 84 U/L (45-117); TOTAL BILIRUBIN ADULT 0.8 MG/DL (0.2-1.0); TOTAL PROTEIN 8.8 GM/DL (6.4-8.2)
[2017-08-21] MEDS ORDERED: MORPHINE SULFATE 4 MG/ML INJ IV PUSH ONE (13:15)
--- NOTE | 2017-08-21 14:22 | PD ---
HPI Chief Complaint: Numbness/Tingling Time Seen by Provider: 11:43 Travel History International Travel<30 days: No Contact w/Intl Traveler<30days: No Traveled to known affect area: No History of Present Illness HPI Is a 62-year-old man presents to the emergency department complaining of back pain and leg weakness. States his legs have been giving out on him multiple times over the past couple weeks. He states that worsening back pain. Also had numbness tingling and paresthesias radiating into both legs, especially on the left. Denies any urinary incontinence or retention, no fecal incontinence, no distinct saddle anesthesia that he appreciates, although he states he feels numb and tingly from the waist down. Does feel weak in both legs, and again states his legs are given out on him several times causing the fall, especially when he first stands up. Describes the numbness and tingling is painful in both legs. Does have a history of tobacco use. Especially denies IV drug use. Only medical history is kidney stones. History Past Medical History Narrative Medical Kidney stones Tetanus Vaccination: > 5 Years Social History Alcohol Use: Yes (rarely ) Tobacco Use: Yes (2ppd) Allergies-Medications (Allergen,Severity, Reaction): Coded Allergies: acetaminophen (Unverified Allergy, Severe, Hives, 03/08/17) propoxyphene (Unverified Allergy, Severe, Hives, 03/08/17) Reported Meds & Prescriptions Reported Meds & Active Scripts Active Clonidine (Clonidine HCl) 0.1 Mg Tab 0.1 Mg PO BID Amlodipine (Amlodipine Besylate) 10 Mg Tab 10 Mg PO DAILY Review of Systems Except as stated in HPI: all other systems reviewed are Neg Physical Exam Narrative GENERAL: 62-year-old man, uncomfortable but nontoxic. SKIN: Focused skin assessment warm/dry. HEAD: Atraumatic. Normocephalic. EYES: Pupils equal and round. No scleral icterus. No injection or drainage. ENT: No nasal bleeding or discharge. Mucous membranes pink and moist. NECK: Trachea midline. No JVD. CARDIOVASCULAR: Regular rate and rhythm. No murmur appreciated. RESPIRATORY: No accessory muscle use. Clear to auscultation. Breath sounds equal bilaterally. GASTROINTESTINAL: Abdomen soft, non-tender, nondistended. Hepatic and splenic margins not palpable. MUSCULOSKELETAL: No obvious deformities. No clubbing. No cyanosis. No edema. NEUROLOGICAL: Awake and alert. Strength grossly symmetric in the lower extremities, full. Sensation subjectively decreased both legs, with some absent sensation in the perianal area on the left especially. PSYCHIATRIC: Appropriate mood and affect; insight and judgment normal. Data Data Last Documented VS Vital Signs Date Time Temp Pulse Resp B/P (MAP) Pulse Ox O2 Delivery O2 Flow Rate FiO2 08/21/17 10:33 98.0 81 16 161/87 (111) 100 Orders Orders Mri L Spine W/O Contrast (08/21/17 ) Iv Access Insert/Monitor (08/21/17 12:06) Complete Blood Count With Diff (08/21/17 12:06) Comprehensive Metabolic Panel (08/21/17 12:06) Morphine Inj (Morphine Inj) (08/21/17 13:15) Labs Laboratory Tests Test 08/21/17 11:35 White Blood Count 6.4 TH/MM3 Red Blood Count 4.29 MIL/MM3 Hemoglobin 15.2 GM/DL Hematocrit 43.7 % Mean Corpuscular Volume 102.0 FL Mean Corpuscular Hemoglobin 35.4 PG Mean Corpuscular Hemoglobin Concent 34.6 % Red Cell Distribution Width 12.8 % Platelet Count 199 TH/MM3 Mean Platelet Volume 9.7 FL Neutrophils (%) (Auto) 59.9 % Lymphocytes (%) (Auto) 24.8 % Monocytes (%) (Auto) 11.6 % Eosinophils (%) (Auto) 3.1 % Basophils (%) (Auto) 0.6 % Neutrophils # (Auto) 3.8 TH/MM3 Lymphocytes # (Auto) 1.6 TH/MM3 Monocytes # (Auto) 0.7 TH/MM3 Eosinophils # (Auto) 0.2 TH/MM3 Basophils # (Auto) 0.0 TH/MM3 CBC Comment DIFF FINAL Differential Comment Blood Urea Nitrogen 12 MG/DL Creatinine 1.14 MG/DL Random Glucose 76 MG/DL Total Protein 8.8 GM/DL Albumin 3.8 GM/DL Calcium Level 8.8 MG/DL Alkaline Phosphatase 84 U/L Aspartate Amino Transf (AST/SGOT) 209 U/L Alanine Aminotransferase (ALT/SGPT) 133 U/L Total Bilirubin 0.8 MG/DL Sodium Level 135 MEQ/L Potassium Level 3.1 MEQ/L Chloride Level 100 MEQ/L Carbon Dioxide Level 22.8 MEQ/L Anion Gap 12 MEQ/L Estimat Glomerular Filtration Rate 66 ML/MIN [facility] Medical Decision Making Medical Screen Exam Complete: Yes Emergency Medical Condition: Yes Interpretation(s) LABS: CBC is unremarkable CMP is unremarkable, elevated AST and ALT L-spine MRI: Old compression deformity, no acute fracture, patent central canal and neuroforamina throughout. Differential Diagnosis Spinal stenosis, cauda equina syndrome, herniated disc, radiculopathy, other Narrative Course Medical decision making INITIAL: 8-year-old man, presents to the ED with concern for spinal stenosis or spinal cord compression with bilateral lower extremity paresthesias weakness. Will check labs, check MRI, reassess. Diagnosis Primary Impression: Leg weakness Patient Instructions: General Instructions Additional Instructions: Take multivitamin daily. Drink plenty fluids stay well-hydrated. Avoid alcohol. Follow with her primary doctor in the next 2-4 days. Med/Other Pt SpecificInfo: Prescription(s) given Scripts Thiamine (Vitamin B-1) 100 Mg Tab 100 MG PO DAILY for Nutritional Supplement for 30 Days, #30 TAB 0 Refills Prov: Kit Hernandez MD 08/21/17 Disposition: 01 DISCHARGE HOME Condition: Stable Kit Hernandez MD Aug 21, 2017 14:22
--- NOTE | 2017-08-21 14:29 | RADRPT ---
EXAM DATE/TIME: 08/21/2017 13:36 [place] COMPARISON: No previous studies available for comparison. INDICATIONS : Pain. MEDICAL HISTORY : Renal calculi. Hypertension. SURGICAL HISTORY : Carpal tunnel syndrome. Elbow ENCOUNTER: Initial ACUITY: 2 day PAIN SCORE: 5/10 LOCATION: back TECHNIQUE: Multiplanar multisequence MRI of the lumbar spine was performed without contrast. FINDINGS: The most caudal appearing lumbar vertebra is numbered as L5. VERTEBRAE: There is an old compression deformity involving the superior endplate of L3 with 10-20% loss of heigh t. No acute compression fracture observed. No retropulsion. Remaining vertebral body heights are main tained. CONUS: Normal level and configuration. T12-L1: The thecal sac has a normal diameter. No evidence of disc bulge or protrusion. The neural foramina are patent bilaterally. L1-L2: The thecal sac has a normal diameter. No evidence of disc bulge or protrusion. The neural foramina are patent bilaterally. L2-L3: The thecal sac has a normal diameter. No evidence of disc bulge or protrusion. The neural foramina are patent bilaterally. L3-L4: The thecal sac has a normal diameter. No evidence of disc bulge or protrusion. The neural foramina are patent bilaterally. L4-L5: The thecal sac has a normal diameter. No evidence of disc bulge or protrusion. The neural foramina are patent bilaterally. L5-S1: There is disc desiccation and disc space narrowing. The thecal sac has a normal diameter. No evidenc e of disc bulge or protrusion. The neural foramina are patent bilaterally. CONCLUSION: 1. There is an old mild compression deformity involving the superior endplate of L3. No acute fractur e is observed. 2. Patent central canal and neural foramina throughout. Dejuan Gustafson Jr., MD on August 21, 2017 at 14:24 Board Certified Radiologist. This report was verified electronically.
[2017-08-21] MEDS ORDERED: VITA100T54 PO (14:45)
== END 2017-08-21 15:21 | disposition home or self-care (01) ==
LOC: NEPD 10:21
DX: R53.1 Weakness (principal); M54.5 Low back pain
CPT/HCPCS: 72148; 80053; 85025; 96374; 99284; J2270

== ENCOUNTER 2017-10-16 18:28 | Emergency (ER) | payer SELFPAY ==
[~2017-10-16] VITALS: Ht 172.7 cm; Wt 70.0 kg
[~2017-10-16 18:28] MED LIST changes: -PRED20 PO; -TRIA0.5O TOPICAL; +VITA100T54 PO; -ZITHTAB PO
[2017-10-16 19:02] VITALS: BP 119/87; PULSE 72; RESP 18; TEMP 97.9; O2SAT 98
[2017-10-16] MEDS ORDERED: SODIUM CHLOR 0.9% 1000 ML INJ 1,000 ML IV SCH (21:29)
[2017-10-16] MEDS ORDERED: SODIUM CHLORIDE 0.9% FLUSH 10 ML FLUSH IV FLUSH PRN (21:30)
[2017-10-16] MEDS ORDERED: MORPHINE SULFATE 4 MG/ML INJ IV PUSH ONE (21:30)
--- NOTE | 2017-10-16 21:34 | PD ---
HPI Chief Complaint: Abdominal Pain Time Seen by Provider: 21:22 Travel History International Travel<30 days: No Contact w/Intl Traveler<30days: No Traveled to known affect area: No History of Present Illness HPI 62-year-old male presents to the ED for evaluation of 7 day history of right upper quadrant pain. Waxing and waning in nature. Maximally 10/10. No alleviating or exacerbating factors reported. Accompanied by loose stools and nausea. Patient denies vomiting, melena, hematochezia, dysuria, hematuria. Endorses a few spots of bright red blood on the toilet paper after BM's. He denies fever, chills. He endorses history of ventral hernia repair. He is a daily alcohol drinker. He is a current smoker. Patient endorses history of kidney stones states that this is "not like that at all." Endorses history of panendoscopy "about 3 years ago." No treatment attempted at home. PFSH Past Medical History Hx Anticoagulant Therapy: Yes (ASPIRIN) Arthritis: Yes Blood Disorders: Yes (bleeds easily) Anxiety: No Depression: No Heart Rhythm Problems: No Cancer: No Cardiac Catheterization: Yes Cardiovascular Problems: Yes (HTN) High Cholesterol: No Chest Pain: No Congestive Heart Failure: No Cerebrovascular Accident: Yes Diabetes: No Diminished Hearing: No Endocrine: No Gastrointestinal Disorders: Yes Genitourinary: Yes (kidney stones) Headaches: No Hepatitis: Yes (C) Hiatal Hernia: Yes Hypertension: Yes ( 2 cardiac caths) Immune Disorder: No Implanted Vascular Access Dvce: No Kidney Stones: Yes Musculoskeletal: Yes (ruptured right bicep) Neurologic: Yes (TIA x ) Psychiatric: Yes (Hx alcohol abuse) Reproductive: No Respiratory: No Integumentary: Yes (PSORIASIS) Migraines: No Renal Failure: No Seizures: No Thyroid Disease: No Past Surgical History Abdominal Surgery: No AICD: No Arteriovenous Shunt: No Body Medical Devices: RIGHT SIDE URETERAL STENT Ear Surgery: No Endocrine Surgery: No Eye Surgery: No Genitourinary Surgery: Yes (LITHOTRIPSY, STENT PLACEMENT) Gynecologic Surgery: No Insulin Pump: No Joint Replacement: No Oral Surgery: No Pacemaker: No Tonsillectomy: Yes Other Surgery: Yes (tennis elbow, carpal tunnel, rotator cuff, hiatal hernia) Social History Alcohol Use: Yes (rarely ) Tobacco Use: Yes (2ppd) Substance Use: No Allergies-Medications (Allergen,Severity, Reaction): Coded Allergies: acetaminophen (Unverified Allergy, Severe, Hives, 10/16/17) propoxyphene (Unverified Allergy, Severe, Hives, 10/16/17) Reported Meds & Prescriptions Reported Meds & Active Scripts Active Pepcid (Famotidine) 20 Mg Tab 20 Mg PO BID Tramadol (Tramadol HCl) 50 Mg Tab 50 Mg PO Q6H PRN Ibuprofen 600 Mg Tab 600 Mg PO Q6H PRN Clonidine (Clonidine HCl) 0.1 Mg Tab 0.1 Mg PO BID Amlodipine (Amlodipine Besylate) 10 Mg Tab 10 Mg PO DAILY Review of Systems Except as stated in HPI: all other systems reviewed are Neg Physical Exam Narrative GENERAL: Well-nourished, well-developed white male no acute distress. SKIN: Focused skin assessment warm/dry. Severe psoriasis of bilateral lower extremities. HEAD: Normocephalic. EYES: No scleral icterus. No injection or drainage. NECK: Supple, trachea midline. No JVD or lymphadenopathy. CARDIOVASCULAR: Regular rate and rhythm without murmurs, gallops, or rubs. RESPIRATORY: Breath sounds equal bilaterally. No accessory muscle use. GASTROINTESTINAL: Abdomen soft, nondistended. Point tenderness in the right upper quadrant. No palpable hepatosplenomegaly. Active bowel sounds. RECTAL EXAM: No masses or tenderness, stool is brown. Guaiac negative. MUSCULOSKELETAL: No cyanosis, or edema. BACK: Nontender without obvious deformity. No CVA tenderness. Data Data Last Documented VS Vital Signs Date Time Temp Pulse Resp B/P (MAP) Pulse Ox O2 Delivery O2 Flow Rate FiO2 10/16/17 19:02 97.9 72 18 119/87 (98) 98 Orders Orders Complete Blood Count With Diff (10/16/17 21:29) Comprehensive Metabolic Panel (10/16/17 21:29) Lipase (10/16/17 21:29) Prothrombin Time / Inr (Pt) (10/16/17 21:29) Act Partial Throm Time (Ptt) (10/16/17 21:29) Urinalysis - C+S If Indicated (10/16/17 21:29) Us Abdomen Gallbladder (10/16/17 ) Iv Access Insert/Monitor (10/16/17 21:29) Ecg Monitoring (10/16/17 21:29) Oximetry (10/16/17 21:29) NPO (10/16/17 21:29) Morphine Inj (Morphine Inj) (10/16/17 21:30) Sodium Chlor 0.9% 1000 Ml Inj (Ns 1000 M (10/16/17 21:29) Sodium Chloride 0.9% Flush (Ns Flush) (10/16/17 21:30) Morphine Inj (Morphine Inj) (10/16/17 22:30) Famotidine Inj (Pepcid Inj) (10/16/17 23:45) Al-Mag Hy-Si 40-40-4 Mg/Ml Liq (Mag-Al P (10/17/17 00:15) Lidocaine 2% Viscous (Xylocaine 2% Visco (10/17/17 00:15) Ed Discharge Order (10/17/17 00:56) Labs Laboratory Tests Test 10/16/17 21:45 10/16/17 23:55 White Blood Count 7.4 TH/MM3 Red Blood Count 4.07 MIL/MM3 Hemoglobin 14.1 GM/DL Hematocrit 41.3 % Mean Corpuscular Volume 101.2 FL Mean Corpuscular Hemoglobin 34.7 PG Mean Corpuscular Hemoglobin Concent 34.3 % Red Cell Distribution Width 13.2 % Platelet Count 203 TH/MM3 Mean Platelet Volume 9.5 FL Neutrophils (%) (Auto) 53.8 % Lymphocytes (%) (Auto) 32.2 % Monocytes (%) (Auto) 7.9 % Eosinophils (%) (Auto) 5.5 % Basophils (%) (Auto) 0.6 % Neutrophils # (Auto) 4.0 TH/MM3 Lymphocytes # (Auto) 2.4 TH/MM3 Monocytes # (Auto) 0.6 TH/MM3 Eosinophils # (Auto) 0.4 TH/MM3 Basophils # (Auto) 0.0 TH/MM3 CBC Comment DIFF FINAL Differential Comment Prothrombin Time 10.5 SEC Prothromb Time International Ratio 1.0 RATIO Activated Partial Thromboplast Time 25.4 SEC Blood Urea Nitrogen 13 MG/DL Creatinine 1.29 MG/DL Random Glucose 78 MG/DL Total Protein 8.2 GM/DL Albumin 3.5 GM/DL Calcium Level 8.4 MG/DL Alkaline Phosphatase 96 U/L Aspartate Amino Transf (AST/SGOT) 70 U/L Alanine Aminotransferase (ALT/SGPT) 58 U/L Total Bilirubin 0.3 MG/DL Sodium Level 141 MEQ/L Potassium Level 3.7 MEQ/L Chloride Level 105 MEQ/L Carbon Dioxide Level 27.2 MEQ/L Anion Gap 9 MEQ/L Estimat Glomerular Filtration Rate 57 ML/MIN Lipase 189 U/L Urine Color YELLOW Urine Turbidity CLEAR Urine pH 5.5 Urine Specific [place] 1.013 Urine Protein NEG mg/dL Urine Glucose (UA) NEG mg/dL Urine Ketones NEG mg/dL Urine Occult Blood NEG Urine Nitrite NEG Urine Bilirubin NEG Urine Urobilinogen LESS THAN 2.0 MG/DL Urine Leukocyte Esterase SMALL Urine RBC LESS THAN 1 /hpf Urine WBC 3 /hpf Microscopic Urinalysis Comment CULT NOT INDICATED MDM Medical Decision Making Medical Screen Exam Complete: Yes Emergency Medical Condition: Yes Differential Diagnosis Cholecystitis versus pancreatitis versus biliary colic versus GERD versus PUD versus other Narrative Course 62-year-old male presents to the ED for evaluation of 7 day history of right upper quadrant pain. Accompanied by loose stools and nausea. He endorses history of ventral hernia repair. He is a daily alcohol drinker. He is a current smoker. Patient endorses history of kidney stones states that this is "not like that at all." Endorses history of panendoscopy "about 3 years ago." Vitals reviewed. On exam the patient has point tenderness in the right upper quadrant. Exam is otherwise unremarkable. IV was established. Patient was administered 4 mg morphine and 1 L normal saline. CBC: No leukocytosis or anemia. UA: No culture indicated. RUQ US: Nonobstructing 7 mm calyceal calculus in the inferior pole of the right kidney. No cholelithiasis or sonographic evidence for acute cholecystitis. Small cysts of the right lobe of the liver. Patient signed out to Dr. Frye at end of shift with CMP pending. Please see his note for disposition. Scripts Famotidine (Pepcid) 20 Mg Tab 20 MG PO BID, #20 TAB 0 Refills Prov: Hamilton Frye MD 10/17/17 Tramadol (Tramadol) 50 Mg Tab 50 MG PO Q6H Y for PAIN, #6 TAB 0 Refills Prov: Hamilton Frye MD 10/17/17 Ibuprofen (Ibuprofen) 600 Mg Tab 600 MG PO Q6H Y for Pain/Inflammation, #20 TAB 0 Refills Prov: Hamilton Frye MD 10/17/17 Karmen Cartwright October 16, 2017 21:34
[2017-10-16 22:29] LABS: BASOPHIL % 0.6 % (0.0-2.0); EOSINOPHIL # 0.4 TH/MM3 (0-0.4); EOSINOPHIL % 5.5 % (0.0-4.0); HEMATOCRIT 41.3 % (39.0-51.0); HEMOGLOBIN 14.1 GM/DL (13.0-17.0); LYMPH % 32.2 % (9.0-44.0); LYMPHOCYTE # 2.4 TH/MM3 (1.0-4.8); MEAN CELL VOLUME 101.2 FL (80.0-100.0); MEAN CORPUSCULAR HEMOGLOBIN 34.7 PG (27.0-34.0); MEAN CORPUSCULAR HGB CONC 34.3 % (32.0-36.0); MEAN PLATELET VOLUME 9.5 FL (7.0-11.0); MONO % 7.9 % (0.0-8.0); MONOCYTE # 0.6 TH/MM3 (0-0.9); NEUT % 53.8 % (16.0-70.0); PLATELET COUNT 203 TH/MM3 (150-450); RED BLOOD COUNT 4.07 MIL/MM3 (4.50-5.90); RED CELL DISTRIBUTION WIDTH 13.2 % (11.6-17.2); WHITE BLOOD COUNT 7.4 TH/MM3 (4.0-11.0)
[2017-10-16] MEDS ORDERED: MORPHINE SULFATE 2 MG/ML SYRINGE IV PUSH ONE (22:30)
--- NOTE | 2017-10-16 22:34 | RADRPT ---
EXAM DATE: 10/16/2017 10:29 PM EDT AGE/SEX: 62 years / Male INDICATIONS: Right upper quadrant pain. CLINICAL DATA: This is the patient's subsequent encounter. Patient reports that signs and/or symptom s have been present for 1 week and indicates a pain score of 8/10. MEDICAL/SURGICAL HISTORY: . Hypertension. Hiatal hernia. Hepatitis C. Renal calculi. . Lithotri psy with stent placement. Hiatal hernia repair. Cardiac catheterization. Tonsillectomy. COMPARISON: [facility] [place] & [place]EL[place] W/O CONTRAST, 11/29/2016. MEASUREMENTS (cm x cm x cm): Liver:__ 17.3 cm length Common Bile Duct:__ 4mm Right Kidney:__ 11.0 x 4.6 x 4.6 cm FINDINGS: Liver: Small anechoic cyst in the right lobe of the liver measuring 1.4 x 1.5 x 2.2 cm. Otherwise, n ormal echogenicity without intrahepatic ductal dilatation. Portal Vein: Hepatopedal flow seen in portal vein. Common Duct: No intraluminal mass or stone visualized. Gallbladder: Demonstrates no wall thickening or pericholecystic fluid. No stones visualized. Gallbla dder Wall: 3 mm Pancreas: The visualized portions are within normal limits. Right Kidney: Small echogenic posterior shadowing lesion measuring 7 mm in the inferior pole of the right kidney consistent with a calyceal calculus. No hydronephrosis or focal mass. 11.0 x 4.6 x 4.6 c m CONCLUSION: 1. Nonobstructing 7 mm calyceal calculus in the inferior pole of the right kidney. 2. No cholelithiasis or sonographic evidence for acute cholecystitis. 3. Small cyst in the right lobe of the liver. Electronically signed by: Edson Ponce MD 10/16/2017 10:33 PM EDT
[2017-10-16 23:03] LABS: ALKALINE PHOSPHATASE 96 U/L (45-117); PROTHROMBIN TIME - PATIENT 10.5 SEC (9.8-11.6); TOTAL BILIRUBIN ADULT 0.3 MG/DL (0.2-1.0); TOTAL PROTEIN 8.2 GM/DL (6.4-8.2)
[2017-10-16 23:14] LABS: ALBUMIN 3.5 GM/DL (3.4-5.0); ALT (GPT) 58 U/L (12-78); AST (GOT) 70 U/L (15-37); BICARBONATE 27.2 MEQ/L (21.0-32.0); BLOOD UREA NITROGEN 13 MG/DL (7-18); CALCIUM 8.4 MG/DL (8.5-10.1); CHLORIDE 105 MEQ/L (98-107); CREATININE 1.29 MG/DL (0.60-1.30); GLOMERULAR FILTRATION RATE 57 ML/MIN (>89); GLUCOSE,RANDOM 78 MG/DL (74-106); SODIUM (NA) 141 MEQ/L (136-145)
[2017-10-16] MEDS ORDERED: FAMOTIDINE 20 MG/2 ML VIAL IV PUSH SCH (23:45)
[2017-10-17] MEDS ORDERED: ALUMINUM/MAGNESIUM/SIMETH 30 ML CUP PO ONE (00:15)
[2017-10-17] MEDS ORDERED: LIDOCAINE VISCOUS 2% SOLN 15 ML UDC SWISH-SPIT ONE (00:15)
[2017-10-17] MEDS ORDERED: TRAM50TA PO (00:49)
[2017-10-17] MEDS ORDERED: IBUP-232 PO (00:49)
[2017-10-17] MEDS ORDERED: FAMO1TAB37 PO (00:50)
[2017-10-17 00:56] LABS: BILIRUBIN, URINE NEG (NEG); BLOOD, URINE NEG (NEG); GLUCOSE,URINE NEG (NEG); KETONE, URINE NEG (NEG); NITRITE,URINE NEG (NEG); PH, URINE 5.5 (5.0-8.5); URINE COLOR YELLOW (YELLW/STRAW); URINE LEUKOCYTE ESTERASE SMALL (NEG)
--- NOTE | 2017-10-17 00:56 | PD ---
Physical Exam Date Seen by Provider: October 17, 2017 Time Seen by Provider: 00:47 Narrative Patient is signed out to me at shift change and to follow-up the ultrasound and his labs to us decide if he has acute cholecystitis. Patient's ultrasound does not show gallstones or cholecystitis his LFTs are normal he still having xiphoid area pain I give him Pepcid IV without any relief I give him GI cocktail without any relief I discussed the fact that he had kidney stones in the past he says this does not feel at all like kidney stones he said no dysuria and he knows kidney stones this is not a kidney stone I am able to reproduce the pain by percussing his xiphoid process I feel this is costochondritis I will discharge with ibuprofen and a few tramadol discharge follow-up as an outpatient Data Data Last Documented VS Orders Orders Complete Blood Count With Diff (10/16/17 21:29) Comprehensive Metabolic Panel (10/16/17 21:29) Lipase (10/16/17 21:29) Prothrombin Time / Inr (Pt) (10/16/17:29) Act Partial Throm Time (Ptt) (10/16/17 21:29) Urinalysis - C+S If Indicated (10/16/17 21:29) Us Abdomen Gallbladder (10/16/17 ) Iv Access Insert/Monitor (10/16/17 21:29) Ecg Monitoring (10/16/17 21:29) Oximetry (10/16/17 21:29) NPO (10/16/17 21:29) Morphine Inj (Morphine Inj) (10/16/17 21:30) Sodium Chlor 0.9% 1000 Ml Inj (Ns 1000 M (10/16/17 21:29) Sodium Chloride 0.9% Flush (Ns Flush) (10/16/17 21:30) Morphine Inj (Morphine Inj) (10/16/17 22:30) Famotidine Inj (Pepcid Inj) (10/16/17 23:45) Al-Mag Hy-Si 40-40-4 Mg/Ml Liq (Mag-Al P (10/17/17 00:15) Lidocaine 2% Viscous (Xylocaine 2% Visco (10/17/17 00:15) Ed Discharge Order (10/17/17 00:56) Labs Laboratory Tests Test 10/16/17 21:45 10/16/17 23:55 White Blood Count 7.4 TH/MM3 Red Blood Count 4.07 MIL/MM3 Hemoglobin 14.1 GM/DL Hematocrit 41.3 % Mean Corpuscular Volume 101.2 FL Mean Corpuscular Hemoglobin 34.7 PG Mean Corpuscular Hemoglobin Concent 34.3 % Red Cell Distribution Width 13.2 % Platelet Count 203 TH/MM3 Mean Platelet Volume 9.5 FL Neutrophils (%) (Auto) 53.8 % Lymphocytes (%) (Auto) 32.2 % Monocytes (%) (Auto) 7.9 % Eosinophils (%) (Auto) 5.5 % Basophils (%) (Auto) 0.6 % Neutrophils # (Auto) 4.0 TH/MM3 Lymphocytes # (Auto) 2.4 TH/MM3 Monocytes # (Auto) 0.6 TH/MM3 Eosinophils # (Auto) 0.4 TH/MM3 Basophils # (Auto) 0.0 TH/MM3 CBC Comment DIFF FINAL Differential Comment Prothrombin Time 10.5 SEC Prothromb Time International Ratio 1.0 RATIO Activated Partial Thromboplast Time 25.4 SEC Blood Urea Nitrogen 13 MG/DL Creatinine 1.29 MG/DL Random Glucose 78 MG/DL Total Protein 8.2 GM/DL Albumin 3.5 GM/DL Calcium Level 8.4 MG/DL Alkaline Phosphatase 96 U/L Aspartate Amino Transf (AST/SGOT) 70 U/L Alanine Aminotransferase (ALT/SGPT) 58 U/L Total Bilirubin 0.3 MG/DL Sodium Level 141 MEQ/L Potassium Level 3.7 MEQ/L Chloride Level 105 MEQ/L Carbon Dioxide Level 27.2 MEQ/L Anion Gap 9 MEQ/L Estimat Glomerular Filtration Rate 57 ML/MIN Lipase 189 U/L Urine Color YELLOW Urine Turbidity CLEAR Urine pH 5.5 Urine Specific [place] 1.013 Urine Protein NEG mg/dL Urine Glucose (UA) NEG mg/dL Urine Ketones NEG mg/dL Urine Occult Blood NEG Urine Nitrite NEG Urine Bilirubin NEG Urine Urobilinogen LESS THAN 2.0 MG/DL Urine Leukocyte Esterase SMALL Urine RBC LESS THAN 1 /hpf Urine WBC 3 /hpf Microscopic Urinalysis Comment CULT [facility] Medical Record Reviewed: Yes Supervised Visit with WILBERT: Yes Differential Diagnosis Gastritis vs GB disease pancreatitis , GERD appendicitis other Narrative Course Patient does not feel any change after GI cocktail Pepcid IV , I discuss his kidney stone history but he assures me that this pain is not renal, I decide not to do a CT and toradol IVP and follow up as out pt I am giving him medications for outpatient management of rib pain and follow-up as an outpatient discharged home costochondritis Diagnosis Primary Impression: Costochondritis Additional Impression: Chest pain, atypical Patient Instructions: General Instructions Departure Forms: Tests/Procedures Scripts Famotidine (Pepcid) 20 Mg Tab 20 MG PO BID, #20 TAB 0 Refills Prov: Hamilton Frye MD 10/17/17 Tramadol (Tramadol) 50 Mg Tab 50 MG PO Q6H Y for PAIN, #6 TAB 0 Refills Prov: Hamilton Frye MD 10/17/17 Ibuprofen (Ibuprofen) 600 Mg Tab 600 MG PO Q6H Y for Pain/Inflammation, #20 TAB 0 Refills Prov: Hamilton Frye MD 10/17/17 Disposition: 01 DISCHARGE HOME Condition: Good Hamilton Frye MD October 17, 2017 00:56
== END 2017-10-17 01:01 | disposition home or self-care (01) ==
LOC: NEPE 18:28
DX: M94.0 Chondrocostal junction syndrome [Tietze] (principal); F17.210 Nicotine dependence, cigarettes, uncomplicated; N20.0 Calculus of kidney; I10 Essential (primary) hypertension
CPT/HCPCS: 76705; 80053; 81001; 83690; 85025; 85610; 85730; 96361; 96374; 96375; 96376; 99284; J2270; J7030